=== PATIENT | female | born 1995 | race Two or more races ===

== ENCOUNTER → 2020-08-31 15:10 | Outpatient (BNVA) | payer OTHER, SELFPAY | PROVIDERS: Visit Provider Internal Medicine | DX: Z76.89 Persons encountering health services in other specified circumstances (principal) ==

== ENCOUNTER 2020-09-13 14:54 | Outpatient (REF) | payer OTHER, SELFPAY ==
[2020-09-13 15:58] LABS: Hematocrit 40.2 % (37-47); Hemoglobin 13.1 g/dl (12.0-16.0); Mean Corpuscular HGB Conc 32.6 g/dl (31.0-35.0); Mean Corpuscular Hemoglobin 29.6 pg (27.0-33.0); Mean Platelet Volume 10.7 fL (9.4-12.3); Platelet Count 361 X10*3/uL (160-400); Red Blood Count 4.42 X10*6/uL (4.20-5.50); Red Cell Distribution Width 13.1 % (11.0-16.0); White Blood Count 7.2 X10*3/uL (4.8-10.8)
[2020-09-13 16:20] LABS: C Reactive Protein 0.17 mg/dL (< or = 0.50)
[2020-09-13 16:51] LABS: Rheumatoid Factor < 15.0 IU/mL (<15.0)
[2020-09-13 17:04] LABS: Erythrocyte Sedimentation Rate 9 MM/HR (0-20)
[2020-09-14 08:08] LABS: Syphilis Screen Nonreactive (Nonreactive)
[2020-09-14 13:33] LABS: Anti Nuclear Antibody Screen NEGATIVE (NEGATIVE)
[2020-09-16 19:36] LABS: Treponema pallidum Ab FTA ABS Nonreactive (Nonreactive)
[2020-09-18 06:32] LABS: Angiotensin Converting Enzyme 28 U/L (9-67)
[2020-09-18 15:33] LABS: HLA B27 Negative (Negative)
== END 2020-09-13 14:55 | disposition home or self-care (01) ==
LOC: HO.LAB 14:54
PROVIDERS: Absent Provider Internal Medicine; Visit Provider Ophthalmology
DX: H20.013 Primary iridocyclitis, bilateral (principal); A53.9 Syphilis, unspecified
CPT/HCPCS: 36415; 82164; 85027; 85652; 86038; 86039; 86140; 86431; 86780; 86812

== ENCOUNTER 2021-03-09 14:45 | Emergency (ER) | payer OTHER, SELFPAY ==
[2021-03-09 15:39] VITALS: BP 110/75; PULSE 71; RESP 18; TEMP 37.3; O2SAT 99; BMI 29.2
[2021-03-09 17:39] LABS: MANUAL DIFF FLAG NO
[2021-03-09 17:40] LABS: Basophils Percent Auto 0.4 % (0-2); Eosinophils Absolute Auto 0.5 X10*3/uL (0.0-0.4); Eosinophils Percent Auto 5.2 % (0-4); Hematocrit 39.6 % (37-47); Hemoglobin 12.9 g/dl (12.0-16.0); Imm Gran Abs Auto 0.03 X10*3/uL (0.00-0.03); Imm Gran Pct Auto 0.3 % (0.0-0.4); Lymphocytes Absolute Auto 2.3 X10*3/uL (1.2-4.9); Lymphocytes Percent Auto 25.3 % (20-40); Mean Corpuscular HGB Conc 32.6 g/dl (31.0-35.0); Mean Corpuscular Hemoglobin 29.3 pg (27.0-33.0); Mean Platelet Volume 10.3 fL (9.4-12.3); Monocytes Absolute Auto 0.5 X10*3/uL (0.1-1.2); Monocytes Percent Auto 5.3 % (2-11); Neutrophils Absolute Auto 5.9 X10*3/uL (2.0-8.3); Neutrophils Percent Auto 63.5 % (45-73); Platelet Count 314 X10*3/uL (160-400); Red Cell Distribution Width 13.1 % (11.0-16.0); White Blood Count 9.2 X10*3/uL (4.8-10.8)
[2021-03-09 18:02] LABS: Anion Gap 12 (12-20); Blood Urea Nitrogen 13 mg/dL (9-16); Calcium 9.8 mg/dL (8.4-10.2); Carbon Dioxide 23 mmol/L (22-29); Chloride 107 mmol/L (96-108); Creatinine Clr Calc Pharmacy 101.9; Estimated Glomerular Filt Rate > 60; Glucose Random 137 mg/dL (60-115); Sodium 138 mmol/L (135-145)
[2021-03-09 19:30] LABS: Glucose Urine UA NEG (NEG); Leukocyte Esterase Urine NEG (NEG); Nitrite Urine NEG (NEG); Specific Gravity - Urine 1.025 (1.005-1.025); Urine Blood NEG (NEG); Urine Ketones NEG (NEG); Urine Protein NEG (NEG-TRACE)
[2021-03-09 19:39] LABS: Appearance Urine CLEAR; Color Urine YELLOW
[2021-03-09 19:40] LABS: UPreg QC Valid YES; Urine Pregnancy NEGATIVE (NEGATIVE)
--- NOTE | 2021-03-09 20:00 | ED.GENADULT ---
HPI - General Adult General Chief complaint: General Medical Stated complaint: cramping Time Seen by Provider: 03/09/21 19:54 Related Data Previous Rx's Medication Instructions Recorded doxycycline hyclate 100 mg PO BID #14 cap 03/09/21 Allergies Allergy/AdvReac Type Severity Reaction Status Date / Time No Known Allergies Allergy Verified 03/09/21 15:39 Review of Systems Review of Systems: Constitutional : No Weight loss, No Fever, No Chills, No Night Sweats, No Fatigue, No Malaise Cardiovascular : No Chest Pain, No SOB, No Dyspnea on Exertion, No Orthopnea, No Edema, No Palpitations Respiratory : No Cough, No Sputum, No Wheezing, No Smoke Exposure, No Dyspnea Gastrointestinal : No Nausea, No Vomiting, No Diarrhea, No Constipation, No abdominal Pain, No Hematochezia, No Melena Genitourinary : no irregular bleeding, No Dysuria, No Urinary Frequency, No Hematuria, No Urinary Incontinence, No Urgency, No Flank Pain, No Urinary Flow Changes, No Hesitancy, vaginal bleeding Skin : No Skin Lesions, No rash Neuro : No Weakness, No Numbness, No Paresthesias, No Loss of Consciousness, No Dizziness, No Headache Psych : No Anxiety/Panic, No Depression, No SI/HI/AH/VH, No Social Issues, Heme/Lymph: No Bruising, No Bleeding,No Lymphadenopathy Endocrine : No Polyuria, No Polydipsia, No Temperature Intolerance Yes all other systems are reviewed and are negative [facility], [facility] Past Medical History Medical History (Updated 03/09/21 @ 20:46 by Lashawn Sharif [facility]) Syphilis Social History Social History Patient Tobacco Use Status: Current everyday Tobacco user Use of substances other than those prescribed or required for medical reasons: Yes Substance Use Type: Marijuana Advance Directives: No Advance Directives Information Provided: Yes Patient : No Physical Exam Vital Signs: Vital Signs: Last Vital Signs Temp 99.1 F 03/09/21 15:39 Pulse 68 03/09/21 20:07 Resp 15 03/09/21 20:07 BP 122/88 03/09/21 20:07 Pulse Ox 100 03/09/21 20:07 Body Mass Index 29.2 Const: General: healthy appearing, no acute distress and well developed Nutritional Appearance: well nourished Orientation/consciousness: patient oriented x3 Neck: Neck: Yes normal visual inspection, Yes full ROM and Yes trachea midline Thyroid: Thyroid normal Resp: Auscultation: clear to auscultation bilaterally Cardio: Rate: regular rate Rhythm: regular rhythm GI: Inspection: Yes normal to inspection and No distended Palpation (GI): No hepatosplenomegaly present Auscultation: normal bowel sounds : Other: Vaginal bleeding, status post plan B Skin: General skin exam: elasticity normal, turgor normal and dry skin Neuro: General: patient oriented x3 Course Course Course Narrative: 25-year-old female here today for complaints of vaginal bleeding. Patient reports [facility] and received plan B, total of 4 pills. Patient reports that she has been having vaginal bleeding since then. CBCs done while in waiting room and no anemia. Urine is negative for . Patient is reporting that she was also diagnosed with gonorrhea, however never treated. She missed several appointments with them because she works and was unable to make the times. Patient denies nausea, vomiting. I will give her a dose of Rocephin IM. Will do urine for gonorrhea and chlamydia. Patient will be sent home with doxycycline. She is agreeable to plan of care and verbalizes understanding of instructions. She was given the opportunity to ask questions and all questions answered. Medical Decision Making Lab Data Result diagrams: 03/09/21 17:33 03/09/21 17:34 Labs: Lab Results 03/09/21 03/09/21 03/09/21 Range/Units 17:33 17:34 19:21 WBC 9.2 (4.8-10.8) X10*3/uL RBC 4.40 (4.20-5.50) X10*6/uL Hgb 12.9 (12.0-16.0) g/dl Hct 39.6 (37-47) % MCV 90.0 (80-98) fL MCH 29.3 (27.0-33.0) pg MCHC 32.6 (31.0-35.0) g/dl RDW 13.1 (11.0-16.0) % Plt Count 314 (160-400) X10*3/uL MPV 10.3 (9.4-12.3) fL Immature Gran % (Auto) 0.3 (0.0-0.4) % Neut % (Auto) 63.5 (45-73) % Lymph % (Auto) 25.3 (20-40) % [place] % (Auto) 5.3 (2-11) % Eos % (Auto) 5.2 H (0-4) % Baso % (Auto) 0.4 (0-2) % Lymph # (Auto) 2.3 (1.2-4.9) X10*3/uL [place] # (Auto) 0.5 (0.1-1.2) X10*3/uL Eos # (Auto) 0.5 H (0.0-0.4) X10*3/uL Baso # (Auto) 0.0 (0.0-0.2) X10*3/uL Abs Immat Gran (auto) 0.03 (0.00-0.03) X10*3/uL Absolute Neuts (auto) 5.9 (2.0-8.3) X10*3/uL Absolute Nucleated RBC 0.000 (0.0-0.012) X10*3/uL Nucleated RBC % (auto) 0.0 (0.0-0.2) /100WBC Sodium 138 (135-145) mmol/L Potassium 4.0 (3.3-5.1) mmol/L Chloride 107 (96-108) mmol/L Carbon Dioxide 23 (22-29) mmol/L Anion Gap 12 (12-20) BUN 13 (9-16) mg/dL Creatinine 0.78 (0.5-1.4) mg/dL Estim Creat Clear Calc 101.9 Estimated GFR > 60 Random Glucose 137 H (60-115) mg/dL Calcium 9.8 (8.4-10.2) mg/dL Urine Color YELLOW Urine Appearance CLEAR Urine pH 6.0 (5.0-8.0) Ur Specific [place] 1.025 (1.005-1.025) Urine Protein NEG (NEG-TRACE) MG/DL Urine Glucose (UA) NEG (NEG) MG/DL Urine Ketones NEG (NEG) MG/DL Urine Blood NEG (NEG) Urine Nitrite NEG (NEG) Ur Leukocyte Esterase NEG (NEG) Urine Test (NEGATIVE) 07/22/21 Range/Units 19:21 WBC (4.8-10.8) X10*3/uL RBC (4.20-5.50) X10*6/uL Hgb (12.0-16.0) g/dl Hct (37-47) % MCV (80-98) fL MCH (27.0-33.0) pg MCHC (31.0-35.0) g/dl RDW (11.0-16.0) % Plt Count (160-400) X10*3/uL MPV (9.4-12.3) fL Immature Gran % (Auto) (0.0-0.4) % Neut % (Auto) (45-73) % Lymph % (Auto) (20-40) % [place] % (Auto) (2-11) % Eos % (Auto) (0-4) % Baso % (Auto) (0-2) % Lymph # (Auto) (1.2-4.9) X10*3/uL [place] # (Auto) (0.1-1.2) X10*3/uL Eos # (Auto) (0.0-0.4) X10*3/uL Baso # (Auto) (0.0-0.2) X10*3/uL Abs Immat Gran (auto) (0.00-0.03) X10*3/uL Absolute Neuts (auto) (2.0-8.3) X10*3/uL Absolute Nucleated RBC (0.0-0.012) X10*3/uL Nucleated RBC % (auto) (0.0-0.2) /100WBC Sodium (135-145) mmol/L Potassium (3.3-5.1) mmol/L Chloride (96-108) mmol/L Carbon Dioxide (22-29) mmol/L Anion Gap (12-20) BUN (9-16) mg/dL Creatinine (0.5-1.4) mg/dL Estim Creat Clear Calc Estimated GFR Random Glucose (60-115) mg/dL Calcium (8.4-10.2) mg/dL Urine Color Urine Appearance Urine pH (5.0-8.0) Ur Specific [place] (1.005-1.025) Urine Protein (NEG-TRACE) MG/DL Urine Glucose (UA) (NEG) MG/DL Urine Ketones (NEG) MG/DL Urine Blood (NEG) Urine Nitrite (NEG) Ur Leukocyte Esterase (NEG) Urine Test NEGATIVE (NEGATIVE) Discharge Plan Discharge Clinical Impression: , Sexually transmitted disease (STD) Patient Disposition: Home, Self-Care Instructions: Sexually Transmitted Diseases (ED) Additional Instructions: You were seen here today after going through . Your test was negative. For sexually transmitted diseases. You were medicated with first dose of the treatment and when urine results are back we will call you. Please make sure you finish all of your treatment. You may return to emergency department if your symptoms will get worse or if he will experience any additional concerning symptoms. Please follow-up with your primary care doctor in 2-3 days Prescriptions: New doxycycline hyclate 100 mg capsule 100 mg PO BID Qty: 14 RF: 0
[2021-03-09 20:07] VITALS: BP 122/88; PULSE 68; RESP 15; O2SAT 100
[2021-03-09] MEDS: cefTRIAXone sodium 500 MG, Lidocaine HCl 1 % MPF 1 ML IM (20:17)
[2021-03-10 11:47] LABS: CT PCR NOT DETECTED (Not Detect.); NG PCR NOT DETECTED (Not Detect.)
== END 2021-03-09 21:02 | disposition home or self-care (01) ==
PROVIDERS: Nurse Practitioner Family; Emergency Provider Emergency Medicine
DX: O03.9 Complete or unspecified spontaneous abortion without complication (principal); Z11.3 Encounter for screening for infections with a predominantly sexual mode of transmission; F17.210 Nicotine dependence, cigarettes, uncomplicated; F12.90 Cannabis use, unspecified, uncomplicated
CPT/HCPCS: 36415; 80048; 81003; 81025; 85025; 87491; 87591; 96372; 99284; J0696

== ENCOUNTER 2021-07-18 10:49 | Emergency (ER) | payer OTHER, SELFPAY ==
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
[2021-07-18 11:10] VITALS: BP 120/75; PULSE 70; RESP 18; TEMP 36.6; O2SAT 99; BMI 28.3
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
[2021-07-18 11:32] LABS: UPreg QC Valid YES; Urine Pregnancy NEGATIVE (NEGATIVE)
== END 2021-07-18 13:03 | disposition home or self-care (01) ==
PROVIDERS: Emergency Provider Emergency Medicine
DX: S39.012A Strain of muscle, fascia and tendon of lower back, initial encounter (principal); S16.1XXA Strain of muscle, fascia and tendon at neck level, initial encounter; V43.53XA Car driver injured in collision with pick-up truck in traffic accident, initial encounter; Y93.89 Activity, other specified; Y92.414 Local residential or business street as the place of occurrence of the external cause; Y99.9 Unspecified external cause status
CPT/HCPCS: 71046; 73030; 81025; 99283

== ENCOUNTER 2022-02-21 03:17 | Emergency (ER) | payer OTHER, SELFPAY ==
[2022-02-21 03:25] VITALS: BP 140/92; PULSE 113; RESP 18; TEMP 37.1; O2SAT 96; BMI 29.2
[2022-02-21 03:45] LABS: COVID-19 Test Negative (Negative); IDNOW Serial# 55D5AD1C; Influenza A Negative (Negative); Influenza B2 Negative (Negative)
[2022-02-21 04:23] LABS: Strep A Nucleic Acid Negative (Negative)
--- NOTE | 2022-02-21 04:32 | ED.URI ---
HPI - URI/Sore Throat General Chief Complaint: Upper Respiratory Symptoms Stated Complaint: loss smell & taste, sore throat, cough Time Seen by Provider: 02/21/22 03:18 Source: patient Mode of arrival: ambulatory Limitations: no limitations History of Present Illness HPI Narrative: Patient comes emergency room complaining of 5 days of congestion, loss of smell, loss of taste, fatigue and generalized malaise. Patient denies chest pain or shortness of breath, mild cough. Related Data Previous Rx's Medication Instructions Recorded doxycycline hyclate 100 mg capsule 100 mg PO BID #14 caps 03/09/21 cyclobenzaprine 10 mg tablet 10 mg PO TID PRN muscle spasm #10 07/18/21 tabs ibuprofen 600 mg tablet 600 mg PO Q8H PRN pain #14 tabs 07/18/21 lidocaine 5 % topical patch 1 patch topical DAILY #15 ea 07/18/21 ibuprofen 600 mg tablet 600 mg PO Q6H PRN fever or pain 02/21/22 #20 tabs Allergies Allergy/AdvReac Type Severity Reaction Status Date / Time No Known Allergies Allergy Verified 03/09/21 15:39 Review of Systems Review of Systems: Constitutional : No Weight loss, complaining of subjective fever, chills, fatigue ENT/Mouth : No Hearing loss, No Ear Pain, No Nasal Congestion, No Sinus Pain, No Hoarseness, No sore throat, No Rhinorrhea, No Swallowing Difficulty Eyes: No Eye Pain, No Swelling, No Redness, No Foreign Body, No Discharge, No Vision Changes Cardiovascular : No Chest Pain, No SOB, No Dyspnea on Exertion, No Orthopnea, No Edema, No Palpitations Respiratory : Complaining of mild cough Gastrointestinal : No Nausea, No Vomiting, No Diarrhea, No Constipation, No abdominal Pain, No Hematochezia, No Melena Genitourinary : no irregular bleeding, No Dysuria, No Urinary Frequency, No Hematuria, No Urinary Incontinence, No Urgency, No Flank Pain, No Urinary Flow Changes, No Hesitancy Musculoskeletal : No joint pain, No Myalgias, No Joint Swelling Skin : No Skin Lesions, No rash Neuro : No Weakness, No Numbness, No Paresthesias, No Loss of Consciousness, No Dizziness, No Headache Psych : No Anxiety/Panic, No Depression, No SI/HI/AH/VH, No Social Issues, Heme/Lymph: No Bruising, No Bleeding,No Lymphadenopathy Endocrine : No Polyuria, No Polydipsia, No Temperature Intolerance [facility] Past Medical History Medical History Syphilis Social History Social History Patient Tobacco Use Status: Current everyday Tobacco user Substance Use Type: Marijuana Physical Exam Vital Signs: Vital Signs: Last Vital Signs Temp 98.7 F 02/21/22 03:25 Pulse 113 H 02/21/22 03:25 Resp 18 02/21/22 03:25 BP 140/92 H 02/21/22 03:25 Pulse Ox 96 02/21/22 03:25 O2 Del Method 02/21/22 03:25 BMI result Body Mass Index 29.2 Const: Other: Appearance: Alert. Oriented X3. No acute distress. Eyes: Pupils equal, round and reactive to light. ENT: Pharynx normal. No exudates, no abscesses, no erythema Neck: Normal inspection. Neck supple. No lymph nodes noted. No crepitus CVS: Normal heart rate and rhythm. Pulses normal. Normal S1 and S2, heart rate in the 90s Respiratory: No respiratory distress. Breath sounds normal. No Wheezing. No rales Abdomen: Soft and nontender. No rigidity. No distention. Skin: Skin warm and dry. Normal skin color. Normal skin turgor. Extremities: No lower extremity edema. No Lacerations. No Rash Neuro: Oriented X 3. No motor deficit. No sensory deficit. Moving all extremities. No slurred speech. CN 2 through 12 grossly intact Psych: calm, cooperative, normal affect Course Course Course Narrative: Patient tested negative for COVID, influenza, strep. Patient likely has a viral syndrome. MDM - URI/Sore Throat Lab Data Labs: Lab Results 02/21/22 02/21/22 02/21/22 Range/Units 03:25 03:25 04:10 COVID-19 (DOMINICK) Negative (Negative) COVID-19 Clin Com See Note Influenza Type A (WANDA) Negative (Negative) Influenza Type B (WANDA) Negative (Negative) Influenza A & B Note See Note S. pyogenes GrpA WANDA Negative (Negative) Discharge Plan Discharge Clinical Impression: Acute viral syndrome Patient Disposition: Home, Self-Care Instructions: Viral Syndrome (ED) Additional Instructions: Please follow-up with your primary care physician tomorrow. If you have any worsening or new symptoms, please return to the emergency room or call 911 Prescriptions: New ibuprofen 600 mg tablet 600 mg PO Q6H PRN (Reason: fever or pain) Qty: 20 0RF No Action doxycycline hyclate 100 mg capsule 100 mg PO BID Qty: 14 0RF cyclobenzaprine 10 mg tablet 10 mg PO TID PRN (Reason: muscle spasm) Qty: 10 0RF ibuprofen 600 mg tablet 600 mg PO Q8H PRN (Reason: pain) Qty: 14 0RF lidocaine 5 % adhesive patch,medicated 1 patch topical DAILY Qty: 15 0RF Rx Instructions: leave on most painful area for up to 12 hrs
[2022-02-21 04:52] VITALS: O2SAT 98
== END 2022-02-21 05:05 | disposition home or self-care (01) ==
PROVIDERS: Emergency Provider Emergency Medicine
DX: B34.9 Viral infection, unspecified (principal); Z20.822 Contact with and (suspected) exposure to COVID-19; R43.8 Other disturbances of smell and taste
CPT/HCPCS: 36415; 87502; 87635; 87651; 99283; 99284

== ENCOUNTER 2023-05-15 13:00 | Emergency (ER) | payer OTHER, SELFPAY ==
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
[2023-05-15 13:58] VITALS: BP 126/90; PULSE 70; RESP 18; TEMP 36.6; O2SAT 98; BMI 35.9
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
[2023-05-15] MEDS: Ketorolac Tromethamine 15 MG/ML VIAL IM (15:21)
[2023-05-15] MEDS: Cyclobenzaprine HCl 5 MG TABLET PO (15:21)
== END 2023-05-15 15:40 | disposition home or self-care (01) ==
PROVIDERS: Emergency Provider Emergency Medicine
DX: M54.50 Low back pain, unspecified (principal); M79.605 Pain in left leg; M79.604 Pain in right leg; Z79.899 Other long term (current) drug therapy
CPT/HCPCS: 72100; 96372; 99283; 99284; J1885

== ENCOUNTER 2023-09-13 16:58 | Emergency (ER) | payer OTHER, SELFPAY ==
--- NOTE | ~2023-09-13 | US_ITS ---
EXAMINATION: US PELVIS CLINICAL INFORMATION: Left-sided pain. Assess for torsion COMPARISON: None available. TECHNIQUE: Ultrasound of the pelvis is performed using both transabdominal and transvaginal transducers along with Doppler. Transvaginal imaging is performed due to inadequate visualization transabdominally. FINDINGS: Uterus: The uterus is anteverted and measures 7.4 x 4.2 x 5.1 cm. The double wall endometrial thickness is 4 mm. The uterus is smooth in contour and has normal myometrial echogenicity. No visible fibroid. Adnexa: Both ovaries are visualized. There is normal color flow to the adnexa. There is no ovarian torsion. There is no pelvic ascites or fluid collection. Right ovary measures 5 mL in volume and left ovary measures 8 mL in volume. US/US pelvic and transvaginal IMPRESSION: No adnexal mass or evidence for any active ovarian torsion.
--- NOTE | ~2023-09-13 | US_ITS ---
EXAMINATION: US PELVIS CLINICAL INFORMATION: Left-sided pain. Assess for torsion COMPARISON: None available. TECHNIQUE: Ultrasound of the pelvis is performed using both transabdominal and transvaginal transducers along with Doppler. Transvaginal imaging is performed due to inadequate visualization transabdominally. FINDINGS: Uterus: The uterus is anteverted and measures 7.4 x 4.2 x 5.1 cm. The double wall endometrial thickness is 4 mm. The uterus is smooth in contour and has normal myometrial echogenicity. No visible fibroid. Adnexa: Both ovaries are visualized. There is normal color flow to the adnexa. There is no ovarian torsion. There is no pelvic ascites or fluid collection. Right ovary measures 5 mL in volume and left ovary measures 8 mL in volume. US/US pelvic ovarian doppler IMPRESSION: No adnexal mass or evidence for any active ovarian torsion.
--- NOTE | 2023-09-13 17:11 | ED.ABDPAIN ---
HPI - Abdominal Pain General Chief Complaint: General Medical Stated Complaint: abd pain x1 week Time Seen by Provider: 09/13/23 19:04 Source: patient Mode of arrival: ambulatory Limitations: no limitations History of Present Illness HPI narrative: 28-year-old female who presents emergency department for evaluation of left lower quadrant abdominal pain x1 week. She states she has a sharp pain that is moderate to severe in intensity, she states the pain is been intermittent. She states that she has had constant nausea for the past week with occasional episodes of vomiting. Patient states that she has had vaginal bleeding x1 week, which she believes is consistent with her menstrual period. Patient states that she is sexually active and she believes that her boyfriend has been cheating on her. She states she did notice a unusual vaginal discharge which was orange and had a foul odor. She denied fever, chills, chest pain, shortness of breath. She did have urinary frequency but no dysuria. Related Data Previous Rx's Medication Instructions Recorded doxycycline hyclate 100 mg capsule 100 mg PO BID #14 caps 03/09/21 cyclobenzaprine 10 mg tablet 10 mg PO TID PRN muscle spasm #10 07/18/21 tabs ibuprofen 600 mg tablet 600 mg PO Q8H PRN pain #14 tabs 07/18/21 lidocaine 5 % topical patch 1 patch topical DAILY #15 ea 07/18/21 ibuprofen 600 mg tablet 600 mg PO Q6H PRN fever or pain 02/21/22 #20 tabs cyclobenzaprine 5 mg tablet 5 mg PO TID PRN muscle spasm 7 05/15/23 days #21 tabs acetaminophen 500 mg tablet 1,000 mg (2 x 500 mg) PO Q6H PRN 09/13/23 (Tylenol Extra Strength) fever or pain #20 tabs doxycycline hyclate 100 mg tablet 100 mg PO Q12H 14 days #28 tabs 09/13/23 ibuprofen 400 mg tablet 400 mg PO TID PRN fever or pain 09/13/23 #30 tabs metronidazole 500 mg tablet 500 mg PO Q12H 14 days #28 tabs 09/13/23 Allergies Allergy/AdvReac Type Severity Reaction Status Date / Time No Known Allergies Allergy Verified 03/09/21 15:39 Review of Systems Review of Systems Yes all other systems are reviewed and are negative [facility] Past Medical History [facility] Narrative: Past medical history: None. Surgical history: None. Social history: She does smoke cigarettes. She occasionally drinks alcohol. She smokes marijuana. Medical History Syphilis Social History Social History Patient Tobacco Use Status: Never used Tobacco Substance Use Type: Marijuana Advance Directives: No Advance Directives Information Provided: No Physical Exam ED Vital Signs: Vital Signs - 24 hr 09/13/23 17:12 Temperature 97.8 F Pulse Rate 75 Respiratory Rate 16 Blood Pressure 128/63 Pulse Oximetry 100 Oxygen Delivery Method Room Air BMI result Body Mass Index 35.9 Vital signs were normal Exam: General: Awake, alert in no distress Lung: breath sounds symmetric, no wheezing, rales or rhonchi Chest: symmetric movement, nontender Heart: regular rate and rhythm, normal S1, S2 no murmurs or rubs Abdomen: soft, mild suprapubic tenderness, mild to moderate left left lower pelvic tenderness : External exam was normal. Vaginal exam did reveal a thick whitish discharge Cervix appears to be inflamed, os is closed and there was a thick whitish discharge coming from the cervical os, patient has moderate cervical motion tenderness Bimanual exam did reveal significant tenderness palpation of the cervix, and palpation over the uterus and adnexa bilaterally Back: no vertebral tenderness, no CVAT Psych: Pleasant, cooperative Course Course Course Narrative: This is an RME: Additional HPI, ROS, PE not included below will be deferred to primary provider. Patient is a 28-year-old female who presents to the emergency department for evaluation of left lower quadrant abdominal pain, nausea, diarrhea. Currently menstruating, denies possibility of . Reports concern for STI, abnormal vaginal discharge preceding menses. Plan: labs, U/A, STI testing Medical Decision Making Medical Decision Making MDM Narrative: 28-year-old female presents emergency department for evaluation of 1 week of left lower quadrant tenderness which an intermittent sharp pain which is moderate to severe in intensity, patient has had vaginal bleeding for 1 week which she attributes to her menstrual period, she has also had persistent nausea for 1 week with occasional vomiting and an unusual, orange, foul-smelling discharge. Patient is concerned that she might have sexually transmitted disease since she believes her boyfriend is cheating on her. Vital signs were normal. Exam did reveal left pelvic tenderness. Pelvic exam revealed a thick white cervical and vaginal discharge with significant cervical motion tenderness and tenderness palpation over the uterus and adnexa bilaterally Following evaluation was ordered: CBC, CMP, urinalysis, urine test, quantitative beta-hCG, pelvic and transvaginal ultrasound, duplex ultrasound Differential diagnosis includes was not limited to related pain, pelvic inflammatory disease, STD, ovarian cyst, ovarian torsion 21:16 My interpretation patient's laboratory evaluation as follows: CBC was normal. CMP was normal except for an elevated glucose of 151. Lipase was negative. Urine test was negative. Quantitative beta-hCG was negative. Pelvic ultrasound revealed no ovarian cyst and no ovarian torsion. Patient's physical examination is consistent with pelvic inflammatory disease and I did discuss this with the patient. Patient was treated with ceftriaxone mixed with lidocaine 500 mg IM, doxycycline 100 mg orally and metronidazole 500 mg orally. She was also given ibuprofen 400 mg orally for pain. She was prescribed doxycycline 100 mg q.12 hours times 14 days and metronidazole 500 mg q.12 hours times 14 days. She will need to follow-up with our service girl in 10-14 days for re-evaluation. She was given printed and verbal instructions discharged home Admission/Observation Consideration of admission/observation: Escalation of care including admission/observation considered Lab Data MDM Lab Attestation statement: I reviewed the patient's lab results. 09/13/23 17:22 09/13/23 17:22 Labs: Lab Results 09/13/23 09/13/23 Range/Units 17:22 19:03 WBC 8.0 (4.8-10.8) X10*3/uL RBC 4.30 (4.20-5.50) X10*6/uL Hgb 12.6 (12.0-16.0) g/dl Hct 37.8 (37.0-47.0) % MCV 87.9 (80.0-98.0) fL MCH 29.3 (27.0-33.0) pg MCHC 33.3 (31.0-35.0) g/dl RDW 12.9 (11.0-16.0) % Plt Count 320 (160-400) X10*3/uL MPV 10.3 (9.4-12.3) fL Immature Gran % (Auto) 0.3 (0.0-0.4) % Neut % (Auto) 47.8 (45-73) % Lymph % (Auto) 40.4 H (20-40) % [place] % (Auto) 4.1 (2-11) % Eos % (Auto) 6.6 H (0-4) % Baso % (Auto) 0.8 (0-2) % Lymph # (Auto) 3.2 (1.2-4.9) X10*3/uL [place] # (Auto) 0.3 (0.1-1.2) X10*3/uL Eos # (Auto) 0.5 H (0.0-0.4) X10*3/uL Baso # (Auto) 0.1 (0.0-0.2) X10*3/uL Abs Immat Gran (auto) 0.02 (0.00-0.03) X10*3/uL Absolute Neuts (auto) 3.8 (2.0-8.3) x10*3/uL Absolute Nucleated RBC 0.000 (0.0-0.012) X10*3/uL Nucleated RBC % (auto) 0.0 (0.0-0.2) /100WBC Sodium 138 (135-145) mmol/L Potassium 3.9 (3.3-5.1) mmol/L Chloride 106 (96-108) mmol/L Carbon Dioxide 22 (22-29) mmol/L Anion Gap 14 (12-20) BUN 13 (9-16) mg/dL Creatinine 0.92 (0.5-1.4) mg/dL Estim Creat Clear Calc 89.9 Estimated GFR > 60 Random Glucose 155 H (60-115) mg/dL Calcium 9.3 (8.4-10.2) mg/dL Total Bilirubin 0.4 (0.0-1.0) mg/dL AST 19 (5-31) U/L ALT 19 (0-31) U/L Alkaline Phosphatase 59 (39-117) U/L Total Protein 7.7 (6.5-8.0) g/dL Albumin 4.0 (3.5-5.0) g/dL Lipase 10 (8-78) U/L Beta HCG, Quant < 2 mIU/mL Urine Color Yellow Urine Appearance Clear Urine pH 5.5 (5.0-9.0) Ur Specific [place] >= 1.030 H (1.005-1.025) Urine Protein Negative (Neg-Trace) mg/dL Urine Glucose (UA) Negative (Negative) mg/dL Urine Ketones Trace (Negative) mg/dL Urine Blood Negative (Negative) Urine Nitrite Negative (Negative) Ur Leukocyte Esterase Negative (Negative) Urine Test NEGATIVE (NEGATIVE) Radiology Impression Discussion of test interpretation with radiology: I have reviewed the radiologist's reading. Radiologist Impression: US pelvic and transvaginal IMPRESSION: No adnexal mass or evidence for any active ovarian torsion. Dictated By: Akash Simpson MD Discharge Plan Discharge Clinical Impression: Acute pelvic inflammatory disease Patient Disposition: Home, Self-Care Additional Instructions: Pelvic inflammatory disease instructions: Your presentation and physical findings are consistent with pelvic inflammatory disease (PID). Approximately 30% of the time, pelvic inflammatory disease is caused by sexually transmitted diseases such as Trichomonas, gonorrhea or chlamydia. Approximately 70% of the time, pelvic inflammatory disease is caused by abnormal bacteria (anaerobic bacteria) in your vagina that can cause an infection ? Medications You received ceftriaxone 500 mg intramuscularly here in the emergency department Take doxycycline 100 mg, 1 pill twice a day for 14 days. Take metronidazole 500 mg, 1 pill twice a day for 14 days. These 3 antibiotics treat sexually transmitted diseases such as gonorrhea, chlamydia and Trichomonas as well as anaerobic bacteria that can cause pelvic inflammatory disease. Take ibuprofen 400 mg pills, 1 pills every 6 hours as needed for pain. Take Tylenol (acetaminophen) 500 mg pills, 2 pills every 4 to 6 hours as needed for pain. Follow-Up Follow-up with our gynecology in ?10-14 days. Pending laboratory tests: The doctor that follows up ?will need to review the following results with you: Gonorrhea and chlamydia (cervical swab) can also check these results on the patient portal. Return precautions: Please return to the emergency department if your symptoms get worse if your pain does not go away in 48 hours or if you develop any symptoms that are concerning to you. Please see the work note. Prescriptions: New metronidazole 500 mg tablet 500 mg PO Q12H 14 Days Qty: 28 0RF acetaminophen [Tylenol Extra Strength] 500 mg tablet 1,000 mg PO Q6H PRN (Reason: fever or pain) Qty: 20 0RF ibuprofen 400 mg tablet 400 mg PO TID PRN (Reason: fever or pain) Qty: 30 0RF doxycycline hyclate 100 mg tablet 100 mg PO Q12H 14 Days Qty: 28 0RF No Action doxycycline hyclate 100 mg capsule 100 mg PO BID Qty: 14 0RF ibuprofen 600 mg tablet 600 mg PO Q6H PRN (Reason: fever or pain) Qty: 20 0RF cyclobenzaprine 10 mg tablet 10 mg PO TID PRN (Reason: muscle spasm) Qty: 10 0RF ibuprofen 600 mg tablet 600 mg PO Q8H PRN (Reason: pain) Qty: 14 0RF lidocaine 5 % adhesive patch,medicated 1 patch topical DAILY Qty: 15 0RF Rx Instructions: leave on most painful area for up to 12 hrs cyclobenzaprine 5 mg tablet 5 mg PO TID PRN (Reason: muscle spasm) 7 Days Qty: 21 0RF Referrals: Jose L Kebede MD [Physician] - 10 days (Pelvic inflammatory disease) Stand Alone Forms: Work/School Release
[2023-09-13 17:12] VITALS: BP 128/63; PULSE 75; RESP 16; TEMP 36.6; O2SAT 100; BMI 35.9
[2023-09-13 17:27] LABS: MANUAL DIFF FLAG NO
[2023-09-13 17:29] LABS: Basophils Absolute Auto 0.1 X10*3/uL (0.0-0.2); Basophils Percent Auto 0.8 % (0-2); Eosinophils Absolute Auto 0.5 X10*3/uL (0.0-0.4); Eosinophils Percent Auto 6.6 % (0-4); Hematocrit 37.8 % (37.0-47.0); Hemoglobin 12.6 g/dl (12.0-16.0); Imm Gran Abs Auto 0.02 X10*3/uL (0.00-0.03); Imm Gran Pct Auto 0.3 % (0.0-0.4); Lymphocytes Absolute Auto 3.2 X10*3/uL (1.2-4.9); Lymphocytes Percent Auto 40.4 % (20-40); Mean Corpuscular HGB Conc 33.3 g/dl (31.0-35.0); Mean Corpuscular Hemoglobin 29.3 pg (27.0-33.0); Mean Corpuscular Volume 87.9 fL (80.0-98.0); Mean Platelet Volume 10.3 fL (9.4-12.3); Monocytes Absolute Auto 0.3 X10*3/uL (0.1-1.2); Monocytes Percent Auto 4.1 % (2-11); Neutrophils Absolute Auto 3.8 x10*3/uL (2.0-8.3); Neutrophils Percent Auto 47.8 % (45-73); Platelet Count 320 X10*3/uL (160-400); Red Cell Distribution Width 12.9 % (11.0-16.0)
[2023-09-13 17:44] LABS: Alanine Aminotransferase 19 U/L (0-31); Alkaline Phosphatase 59 U/L (39-117); Anion Gap 14 (12-20); Aspartate Amino Transferase 19 U/L (5-31); Bilirubin Total 0.4 mg/dL (0.0-1.0); Blood Urea Nitrogen 13 mg/dL (9-16); Calcium 9.3 mg/dL (8.4-10.2); Carbon Dioxide 22 mmol/L (22-29); Chloride 106 mmol/L (96-108); Creatinine Clr Calc Pharmacy 89.9; Estimated Glomerular Filt Rate > 60; Glucose Random 155 mg/dL (60-115); Lipase 10 U/L (8-78); Potassium 3.9 mmol/L (3.3-5.1); Sodium 138 mmol/L (135-145); Total Protein 7.7 g/dL (6.5-8.0)
[2023-09-13 19:09] LABS: Appearance Urine Clear; Color Urine Yellow; Glucose Urine UA Negative (Negative); Leukocyte Esterase Urine Negative (Negative); Nitrite Urine Negative (Negative); PH 5.5 (5.0-9.0); Specific Gravity - Urine >= 1.030 (1.005-1.025); Urine Blood Negative (Negative); Urine Ketones Trace mg/dL (Negative); Urine Protein Negative (Neg-Trace)
[2023-09-13 19:43] LABS: HCG Quantitative < 2 mIU/mL
[2023-09-13 19:58] LABS: UPreg QC Valid YES; Urine Pregnancy NEGATIVE (NEGATIVE)
[2023-09-13] MEDS: metroNIDAZOLE 500 MG TABLET PO (21:37)
[2023-09-13] MEDS: cefTRIAXone sodium 500 MG, Lidocaine HCl 1 % MPF 1 ML IM (21:37)
[2023-09-13] MEDS: Ibuprofen 400 MG TABLET PO (21:37)
[2023-09-13] MEDS: Doxycycline Monohydrate 100 MG CAPSULE PO (21:37)
[2023-09-14 09:15] LABS: CT PCR DETECTED (Not Detect.); NG PCR NOT DETECTED (Not Detect.)
== END 2023-09-13 21:59 | disposition home or self-care (01) ==
PROVIDERS: Nurse Practitioner Family; Emergency Provider Emergency Medicine Emergency Medical Services
DX: A56.11 Chlamydial female pelvic inflammatory disease (principal); R10.32 Left lower quadrant pain
CPT/HCPCS: 0353U; 36415; 76830; 76856; 80053; 81003; 81025; 83690; 84702; 85025; 93975; 96372; 99283; 99284; J0696

== ENCOUNTER 2023-10-01 17:44 | Emergency (ER) | payer OTHER, SELFPAY ==
--- NOTE | ~2023-10-01 | US_ITS ---
EXAMINATION: US PELVIS CLINICAL INFORMATION: PID, persistent pain, ?TOA COMPARISON: None available. TECHNIQUE: Ultrasound of the pelvis is performed using both transabdominal and transvaginal transducers along with Doppler. Transvaginal imaging is performed due to inadequate visualization transabdominally. FINDINGS: The uterus measures 8.4 x 3.6 x 5.2 cm. Endometrial stripe measures 1.1 cm in thickness. The right ovary measures 3.9 x 2.2 x 2.3 cm. Cystic structure in the right ovary measuring up to 1.6 cm favors a follicle. The left ovary measures 3.3 x 2.0 x 2.2 cm and appears unremarkable. Doppler evaluation demonstrates bilateral ovarian flow. No adnexal mass is seen. No significant free fluid identified. US/US pelvic and transvaginal IMPRESSION: No acute findings identified.
[2023-10-01 18:10] VITALS: BP 121/85; PULSE 90; RESP 18; TEMP 36.7; O2SAT 97; BMI 34.5
--- NOTE | 2023-10-01 18:13 | ED.GENADULT ---
HPI - General Adult General Chief complaint: Urogenital-Female Stated complaint: Vaginal discomfort Time Seen by Provider: 10/01/23 20:35 Source: patient Mode of arrival: ambulatory Limitations: no limitations History of Present Illness HPI narrative: Patient is a 28-year-old female who presents to the emergency department for evaluation. She reports recently being treated for PID with positive chlamydia testing, but has continued symptoms. She states for the first couple of days while being on her course of antibiotics she had improvement in her abdominal pain and discharge, however after about 3 days of being on the medication her symptoms returned. She has approximately 2 days left of treatment, she does report that she has not been consistent with taking her medications completely as prescribed and has missed some doses in between. 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 Continues to have some mild lower abdominal pain, and persistent thick white vaginal discharge. Related Data Previous Rx's Medication Instructions Recorded doxycycline hyclate 100 mg capsule 100 mg PO BID #14 caps 03/09/21 cyclobenzaprine 10 mg tablet 10 mg PO TID PRN muscle spasm #10 07/18/21 tabs ibuprofen 600 mg tablet 600 mg PO Q8H PRN pain #14 tabs 07/18/21 lidocaine 5 % topical patch 1 patch topical DAILY #15 ea 07/18/21 ibuprofen 600 mg tablet 600 mg PO Q6H PRN fever or pain 02/21/22 #20 tabs cyclobenzaprine 5 mg tablet 5 mg PO TID PRN muscle spasm 7 05/15/23 days #21 tabs acetaminophen 500 mg tablet 1,000 mg (2 x 500 mg) PO Q6H PRN 09/13/23 (Tylenol Extra Strength) fever or pain #20 tabs doxycycline hyclate 100 mg tablet 100 mg PO Q12H 14 days #28 tabs 09/13/23 ibuprofen 400 mg tablet 400 mg PO TID PRN fever or pain 09/13/23 #30 tabs metronidazole 500 mg tablet 500 mg PO Q12H 14 days #28 tabs 09/13/23 Allergies Allergy/AdvReac Type Severity Reaction Status Date / Time No Known Allergies Allergy Verified 10/01/23 18:13 Review of Systems Review of Systems: Yes all other systems are reviewed and are negative PMFSH Past Medical History Attestation statement: The following information was validated with the patient. Source: old records reviewed Medical History Syphilis Social History Social History Patient Tobacco Use Status: Never used Tobacco Substance Use Type: Marijuana Advance Directives: No Advance Directives Information Provided: No Physical Exam ED Vital Signs: Vital Signs - 24 hr 10/01/23 18:10 Temperature 98.1 F Pulse Rate 90 Respiratory Rate 18 Blood Pressure 121/85 Pulse Oximetry 97 Oxygen Delivery Method Room Air BMI result Body Mass Index 34.5 Appearance: Alert.?Oriented to person, place and time. No acute distress.?Normal affect. Eyes: Pupils equal, round and reactive to light.? ENT: Pharynx normal.?? Neck: Normal inspection.? Neck supple.?? CVS: Heart sounds normal. Normal heart rate and rhythm.? Pulses normal.?? Respiratory: No respiratory distress.? Lung sounds clear to auscultation bilaterally?? Abdomen: Soft with mild bilateral lower abdominal tenderness upon palpation. No rebound tenderness. No rigidity. No guarding.. Normoactive bowel sounds. Genital: Performed with german teacher, ED RN Corazon, patient agreeable to external examination, normal external appearance of the urethra no lesions lacerations or Bartholin cyst noted. Thin white discharge is present from the vaginal vault, no swelling or erythema to the external tissues is noted. No active bleeding. Skin: Skin warm and dry.? Normal skin color.? Normal skin turgor.?? Extremities: No lower extremity edema.? No calf ttp? Neuro: Moves all extremities spontaneously. Sensation intact bilaterally. CN II-XII intact. No focal neuro deficits. Ambulates with normal steady gait. Course Course Course Narrative: Patient complains of vaginal discharge and rash Urine GC chlamydia, test ordered This is rapid medical exam done in triage pending full evaluation and dispo by ER provider Reevaluation(s) Reevaluation #1: Advised by nursing staff that patient has left without completing treatment. Time: 21:45 Medical Decision Making Medical Decision Making MDM Narrative: Patient is a 28-year-old female who presents emergency department for evaluation of persistent vaginal discharge and lower abdominal pain in the setting of recent PID diagnosis with positive chlamydia testing. She had a few days of improvement in symptoms while being on course of antibiotics and them things returned. Overall she does appear well, nontoxic, afebrile. Given persistent symptoms and pain, concern for complications, possible TOA, will obtain serum labs in addition to pelvic ultrasound for further testing. Will repeat testing for CT/NG, as well as BV panel, concern for resistant chlamydial infection, yeast infection, BV in addition. I reviewed urinalysis obtained from triage, does not appear consistent with the acute urinary tract infection and testing is negative. Differential Diagnosis Differential Diagnoses: The differential diagnosis associated with the presentation includes (See narrative above) Admission/Observation Consideration of admission/observation: Escalation of care including admission/observation considered (Concern for complicated PID given persistent symptoms despite treatment, patient left without completing treatment) Lab Data MDM Lab Attestation statement: I reviewed the patient's lab results. CBC is without leukocytosis or anemia. BMP is unremarkable. See narrative above for further detail 10/01/23 21:45 10/01/23 21:45 Labs: Lab Results 10/01/23 10/01/23 Range/Units 19:56 21:45 WBC 9.4 (4.8-10.8) X10*3/uL RBC 4.70 (4.20-5.50) X10*6/uL Hgb 13.8 (12.0-16.0) g/dl Hct 41.0 (37.0-47.0) % MCV 87.2 (80.0-98.0) fL MCH 29.4 (27.0-33.0) pg MCHC 33.7 (31.0-35.0) g/dl RDW 13.2 (11.0-16.0) % Plt Count 342 (160-400) X10*3/uL MPV 10.1 (9.4-12.3) fL Immature Gran % (Auto) 0.2 (0.0-0.4) % Neut % (Auto) 57.5 (45-73) % Lymph % (Auto) 29.3 (20-40) % [place] % (Auto) 7.7 (2-11) % Eos % (Auto) 4.8 H (0-4) % Baso % (Auto) 0.5 (0-2) % Lymph # (Auto) 2.8 (1.2-4.9) X10*3/uL [place] # (Auto) 0.7 (0.1-1.2) X10*3/uL Eos # (Auto) 0.5 H (0.0-0.4) X10*3/uL Baso # (Auto) 0.1 (0.0-0.2) X10*3/uL Abs Immat Gran (auto) 0.02 (0.00-0.03) X10*3/uL Absolute Neuts (auto) 5.4 (2.0-8.3) x10*3/uL Absolute Nucleated RBC 0.000 (0.0-0.012) X10*3/uL Nucleated RBC % (auto) 0.0 (0.0-0.2) /100WBC Sodium 140 (135-145) mmol/L Potassium 4.1 (3.3-5.1) mmol/L Chloride 105 (96-108) mmol/L Carbon Dioxide 27 (22-29) mmol/L Anion Gap 12 (12-20) BUN 11 (9-16) mg/dL Creatinine 0.71 (0.5-1.4) mg/dL Estim Creat Clear Calc 114.0 Estimated GFR > 60 Random Glucose 84 (60-115) mg/dL Calcium 9.2 (8.4-10.2) mg/dL Urine Color Dark Yellow Urine Appearance Clear Urine pH 5.5 (5.0-9.0) Ur Specific [place] 1.020 (1.005-1.025) Urine Protein Negative (Neg-Trace) mg/dL Urine Glucose (UA) Negative (Negative) mg/dL Urine Ketones Negative (Negative) mg/dL Urine Blood Negative (Negative) Urine Nitrite Negative (Negative) Ur Leukocyte Esterase Small (1+) H (Negative) Urine RBC 0-2 (0-2) /HPF Urine WBC 6-10 H (0-5) /HPF Ur Squamous Epith Cells 3-5 (0-2) /HPF Urine Bacteria Trace (None Seen) Hyaline Casts 0-2 (0-2) /LPF Urine Test NEGATIVE (NEGATIVE) Radiology Impression Discussion of test interpretation with radiology: I have reviewed the radiologist's reading. Radiologist Impression: US/US pelvic and transvaginal IMPRESSION: No acute findings identified. External Record Review External record reviewed: Outpatient record Discharge Plan Discharge Clinical Impression: Vaginitis Patient Disposition: Left W/O Completing Treatment Prescriptions: No Action doxycycline hyclate 100 mg capsule 100 mg PO BID Qty: 14 0RF ibuprofen 600 mg tablet 600 mg PO Q6H PRN (Reason: fever or pain) Qty: 20 0RF cyclobenzaprine 10 mg tablet 10 mg PO TID PRN (Reason: muscle spasm) Qty: 10 0RF ibuprofen 600 mg tablet 600 mg PO Q8H PRN (Reason: pain) Qty: 14 0RF lidocaine 5 % adhesive patch,medicated 1 patch topical DAILY Qty: 15 0RF Rx Instructions: leave on most painful area for up to 12 hrs cyclobenzaprine 5 mg tablet 5 mg PO TID PRN (Reason: muscle spasm) 7 Days Qty: 21 0RF metronidazole 500 mg tablet 500 mg PO Q12H 14 Days Qty: 28 0RF acetaminophen [Tylenol Extra Strength] 500 mg tablet 1,000 mg PO Q6H PRN (Reason: fever or pain) Qty: 20 0RF ibuprofen 400 mg tablet 400 mg PO TID PRN (Reason: fever or pain) Qty: 30 0RF doxycycline hyclate 100 mg tablet 100 mg PO Q12H 14 Days Qty: 28 0RF Discharge Date/Time: 10/01/23 21:56
[2023-10-01 20:04] LABS: Appearance Urine Clear; Color Urine Dark Yellow; Glucose Urine UA Negative (Negative); Leukocyte Esterase Urine Small (1+) (Negative); Nitrite Urine Negative (Negative); PH 5.5 (5.0-9.0); UMIC TRIGGER UACC YES; Urine Blood Negative (Negative); Urine Ketones Negative (Negative); Urine Protein Negative (Neg-Trace)
[2023-10-01 20:06] LABS: UPreg QC Valid YES; Urine Pregnancy NEGATIVE (NEGATIVE)
[2023-10-01 20:09] LABS: Bacteria Urine Trace (None Seen); Hyaline Casts Urine 0-2 /LPF (0-2); RBC Urine 0-2 /HPF (0-2); UACC Culture Trigger YES
--- NOTE | 2023-10-01 21:49 | PC.NURSE ---
patient had to leave as need to work for 11pm tonight. Pan FUR PULLER aware. labs drawn and vag ultrasound completed with no results at this time.
[2023-10-01 21:50] LABS: MANUAL DIFF FLAG NO
[2023-10-01 21:52] LABS: Basophils Absolute Auto 0.1 X10*3/uL (0.0-0.2); Basophils Percent Auto 0.5 % (0-2); Eosinophils Absolute Auto 0.5 X10*3/uL (0.0-0.4); Eosinophils Percent Auto 4.8 % (0-4); Hemoglobin 13.8 g/dl (12.0-16.0); Imm Gran Abs Auto 0.02 X10*3/uL (0.00-0.03); Imm Gran Pct Auto 0.2 % (0.0-0.4); Lymphocytes Absolute Auto 2.8 X10*3/uL (1.2-4.9); Lymphocytes Percent Auto 29.3 % (20-40); Mean Corpuscular HGB Conc 33.7 g/dl (31.0-35.0); Mean Corpuscular Hemoglobin 29.4 pg (27.0-33.0); Mean Corpuscular Volume 87.2 fL (80.0-98.0); Mean Platelet Volume 10.1 fL (9.4-12.3); Monocytes Absolute Auto 0.7 X10*3/uL (0.1-1.2); Monocytes Percent Auto 7.7 % (2-11); Neutrophils Absolute Auto 5.4 x10*3/uL (2.0-8.3); Neutrophils Percent Auto 57.5 % (45-73); Platelet Count 342 X10*3/uL (160-400); Red Cell Distribution Width 13.2 % (11.0-16.0); White Blood Count 9.4 X10*3/uL (4.8-10.8)
--- NOTE | 2023-10-01 21:56 | PC.NURSE ---
patient had to leave [facility] as working at 11pm and could not be late. Labs drawn and sent down but we as staff cannot confirm that results will be back in time. She is aware that leaving without completing treatment isn't the best plan
[2023-10-01 22:03] LABS: Anion Gap 12 (12-20); Blood Urea Nitrogen 11 mg/dL (9-16); Calcium 9.2 mg/dL (8.4-10.2); Carbon Dioxide 27 mmol/L (22-29); Chloride 105 mmol/L (96-108); Estimated Glomerular Filt Rate > 60; Glucose Random 84 mg/dL (60-115); Potassium 4.1 mmol/L (3.3-5.1); Sodium 140 mmol/L (135-145)
[2023-10-02 05:49] LABS: CT PCR NOT DETECTED (Not Detect.); NG PCR NOT DETECTED (Not Detect.)
[2023-10-02 10:39] LABS: BV Int Neg Control Negative (Negative); BV Int Pos Control Positive (Positive)
== END 2023-10-01 21:56 | disposition left against medical advice (07) ==
PROVIDERS: Nurse Practitioner Family; Physician Assistant Medical; Emergency Provider Emergency Medicine
DX: A56.02 Chlamydial vulvovaginitis (principal); R10.2 Pelvic and perineal pain; N89.8 Other specified noninflammatory disorders of vagina; Z79.899 Other long term (current) drug therapy
CPT/HCPCS: 0353U; 36415; 76830; 76856; 80048; 81001; 81003; 81025; 85025; 87086; 87147; 87480; 87510; 87660; 99282; 99284

== ENCOUNTER 2023-10-10 12:59 | Outpatient (REF) | payer OTHER, SELFPAY ==
[2023-10-11 16:52] LABS: CT PCR NOT DETECTED (Not Detect.); NG PCR NOT DETECTED (Not Detect.)
[2023-10-12 14:42] LABS: BV Int Neg Control Negative (Negative); BV Int Pos Control Positive (Positive)
== END 2023-10-10 13:00 | disposition home or self-care (01) ==
LOC: HO.LAB 12:59
PROVIDERS: Visit Provider Advanced Practice Midwife
DX: A53.9 Syphilis, unspecified (principal); Z11.3 Encounter for screening for infections with a predominantly sexual mode of transmission; Z87.42 Personal history of other diseases of the female genital tract
CPT/HCPCS: 0353U; 81025; 87480; 87510; 87660; 99202

== ENCOUNTER 2023-10-10 12:59 | Outpatient (AMB) | payer OTHER, SELFPAY ==
[2023-10-10 13:00] VITALS: BP 100/60; BMI 34.8
--- NOTE | 2023-10-10 13:00 | A.OFFVIS_ITS ---
Intake Vital Signs 10/10/23 13:00 Height 5 ft 1 in Weight 184 lb BMI 34.8 BP 100/60 Intake Visit Reasons: ER follow up Information Technology Coordinator Required: No Information Interpreted: clinical only Lab Associate: Lab Associate Present Allergies No Known Allergies Allergy (Verified 10/10/23 13:01) Medication List - Last Reconciled 10/10/23 by Mary Rooney CNM acetaminophen (Tylenol Extra Strength) 1,000 mg (2 x 500 mg) PO Q6H PRN Is last menstrual period known: Yes Last menstrual period: 09/03/23 Do you need a note to return to daycare/school/sports/work: No HPI ER follow up HPI Details Patient is here for follow-up from the ER she was seen in the ER a couple of times recently the 2nd to last visit she was there for abdominal pain and she was treated for PID and chlamydia was diagnosed. She says she has not had sex since she did tell that partner but she has not planning on having sex again she would however like a method of control her sister has a NuvaRing and she would like that if she could she smokes but wishes she could quit and is been planning on it she smokes maybe 3-4 cigarettes a day and she would like very much to quit and is interested in doing something about that as well. She does have a little discharge it has a little yellowish but that is all she is a little bit late with her. But she feels like it is going to come she has been getting all her premenstrual Symptoms test done today here is negative. She is a 3-year-old daughter delivered at [facility] premature at 7 months in 2019 during the pandemic. [facility] Medical History Syphilis Social History Patient Tobacco Use Status: Never used Tobacco Substance Use Type: Marijuana Female Reproductive History Menstrual Age of Menarche: 10 Duration of menses: 3-5 days Date of last menstrual period: 09/03/23 control method: none Total pregnancies: 1 Full term: 1 History of abnormal pap smear: No (previous pap unknown ?) Physical Exam Vital Signs: Last Vital Signs BP 100/60 10/10/23 13:00 BMI result Body Mass Index 34.8 Other: Speculum exam within normal limits vagina pink smooth healthy parous cervix pink and smooth very scant normal clear mucus. External Female Exam: normal external appearance Speculum Exam - Vagina: normal appearance of the vagina and normal vaginal d ischarge Speculum Exam - Cervix: normal appearance of the cervix Bimanual exam- vagina & uterus: normal bimanual exam, uterine size normal, consistency normal, uterine mobility normal, uterine shape normal and non-tender Bimanual Exam- Adnexa, other: normal adnexae, no masses and No adnexal tenderness Results AMB Test Urine AMB Test Urine Negative Last Edit by Lyric Andino CMA on 10/10/23 13:18 Results Reviewed Results Reviewed: Laboratory Last Values [facility]st Clinic Negative 10/10/23 13:12 Patient: Eric Moser MR#: [id number] : 1995 Acct:[id number] Age/Sex: 28 / F ADM Date: 10/01/23 Loc: HO.ED Attending Dr: Ordering Physician: Josie Hastings CNP Date of Service: 10/01/23 Procedure(s): US pelvic and transvaginal Accession Number(s): [id number] cc: Josie Hastings CNP; Physician,None ~ EXAMINATION: US PELVIS CLINICAL INFORMATION: PID, persistent pain, ?TOA COMPARISON: None available. TECHNIQUE: Ultrasound of the pelvis is performed using both transabdominal and transvaginal transducers along with Doppler. Transvaginal imaging is performed due to inadequate visualization transabdominally. FINDINGS: The uterus measures 8.4 x 3.6 x 5.2 cm. Endometrial stripe measures 1.1 cm in thickness. The right ovary measures 3.9 x 2.2 x 2.3 cm. Cystic structure in the right ovary measuring up to 1.6 cm favors a follicle. The left ovary measures 3.3 x 2.0 x 2.2 cm and appears unremarkable. Doppler evaluation demonstrates bilateral ovarian flow. No adnexal mass is seen. No significant free fluid identified. US/US pelvic and transvaginal IMPRESSION: No acute findings identified. Dictated By: Julio César Black MD Signed By: <Electronically signed by Julio César Black MD in [place]> 10/01/232147 DD/ 18 TD/TT: [employer] Intermediary: NICOLLE Also reviewed all of her previous lab work including positive FTA in 2020. As well as positive chlamydia the 2nd to last ER visit and positive Gardnerella and Gabriella at the last ER visit last week she is feeling less itchy and things are improving she was not treated for either of those we will retest today and await results, Assessment & Plan Assessment & Plan (1) Syphilis: Comment: She has minimally reactive FTA SHe has no titer available She has had false positive she says in past Code(s): A53.9 - Syphilis, unspecified (2) Encounter for screening examination for sexually transmitted disease: Code(s): Z11.3 - Encounter for screening for infections with a predominantly sexual mode of transmission (3) History of PID: Code(s): Z87.42 - Personal history of other diseases of the female genital tract Plan Reviewed would of been done in the ER reviewed that it appears that she is now better from the PID and even if she had bacterial vaginosis and yeast it does appear that she may have had the yeast indeed in that her vagina is a little bit pink but looks like it is well on its way to healing from that the discharge looked fine today and in fact consistent with somebody about to get there.. Extensive discussion about options for control which she is interested in she would like the ring her sister's using it and she thinks it would be convenient discussed all the many issues involved with it she use including not taking it out accept when it is time to take out i.e. leave it in for the full 21 days take it out for 7 then replace it with a new 1 for the next 21 days I have given her 3 month supply with refills but she is a smoker who is interested very much in quitting she is tired of it and does not like the smell and she would love to be able to quit altogether she smokes about 3-4 cigarettes a day. I have prescribed as 7 mg nicotine patch for her if it is covered by her insurance and if it is not she may explore NICU team gum or something else and discussed using this opportunity as motivation to help her get off the cigarettes completely she is motivated to quit so we will see her in 3 months for her full annual exam if she has quit at that time she may continue on the NuvaRing. Discussed the possible negative effects for people who smoke and use hormonal contraceptive that they put themselves at increased risk of having a blood clot and I discussed the symptoms of them. Orders: Orders Syphilis Screen Today A53.9 - Syphilis, unspecified, Z11.3 - Encounter for screening for infections with a predominantly sexual mode of transmission CT NG by PCR Today Z01.419 - Encounter for gynecological examination (general) (routine) without abnormal findings AMB HCG Urine Test Today Z32.02 - Encounter for test, result negative Hepatitis B Surface Antigen Today A53.9 - Syphilis, unspecified, Z11.3 - Encounter for screening for infections with a predominantly sexual mode of transmission Hepatitis C Antibody Today A53.9 - Syphilis, unspecified, Z11.3 - Encounter for screening for infections with a predominantly sexual mode of transmission HIV Ab/Ag Today A53.9 - Syphilis, unspecified, Z11.3 - Encounter for screening for infections with a predominantly sexual mode of transmission Bacterial Vaginosis Panel Today Z20.2 - Contact with and (suspected) exposure to infections with a predominantly sexual mode of transmission Medications: New etonogestrel-ethinyl estradiol 0.12-0.015 mg/[address] for 3 weeks of a 4-week cycle 1 vag ring vaginal Q4W 3 ea 3RF nicotine 1 patch transdermal Q24H 14 ea 0RF Coding Level of Care Code New Pt Level 3 (70016) Diagnoses Syphilis A53.9 Encounter for screening examination for sexually transmitted disease Z11.3 History of PID Z87.42
== END 2023-10-10 14:11 | disposition home or self-care (01) ==
LOC: HO.HWSM 12:59
PROVIDERS: Visit Provider Advanced Practice Midwife
DX: A53.9 Syphilis, unspecified (principal); Z11.3 Encounter for screening for infections with a predominantly sexual mode of transmission; Z87.42 Personal history of other diseases of the female genital tract; Z32.02 Encounter for pregnancy test, result negative
CPT/HCPCS: 99203

== ENCOUNTER 2023-10-11 14:10 | Emergency (ER) | payer OTHER, SELFPAY ==
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
[2023-10-11 14:17] VITALS: BP 134/90; PULSE 88; O2SAT 98
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
[2023-10-11 14:19] VITALS: BP 116/79; PULSE 79; RESP 18; TEMP 36.6; O2SAT 97; BMI 35.0
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
[2023-10-11] MEDS: diazePAM 2 MG TABLET PO (18:09)
[2023-10-11] MEDS: Acetaminophen 325 MG TABLET 975 MG PO (18:09)
== END 2023-10-11 18:15 | disposition home or self-care (01) ==
PROVIDERS: Emergency Provider Internal Medicine
DX: S13.4XXA Sprain of ligaments of cervical spine, initial encounter (principal); S39.012A Strain of muscle, fascia and tendon of lower back, initial encounter; V43.52XA Car driver injured in collision with other type car in traffic accident, initial encounter; Y93.9 Activity, unspecified; Y92.410 Unspecified street and highway as the place of occurrence of the external cause; Y99.9 Unspecified external cause status; M54.2 Cervicalgia; R51.9 Headache, unspecified; M62.830 Muscle spasm of back; M25.522 Pain in left elbow; M25.512 Pain in left shoulder
CPT/HCPCS: 70450; 72125; 73030; 73080; 99283; 99284

== ENCOUNTER 2024-03-08 09:42 | Emergency (ER) | payer OTHER, SELFPAY ==
[2024-03-08 09:51] VITALS: BP 126/92; PULSE 83; RESP 16; TEMP 36.8; O2SAT 97; BMI 34.7
--- NOTE | 2024-03-08 10:11 | ED.GENADULT ---
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 Denies any injury or known foreign body. States she had previously been seeing Dr. Soto, but was discharged from the practice after a no-call, no-show. Reports difficulty finding another property claim rep as she has [employer]. She denies contact lens use, wears glasses but did not bring them with her to the ED. Had unknown eyedrops leftover from 2 years ago, has been using those without change in symptoms. Denies any headaches, dizziness, nausea or vomiting. MD complaint: eye irritation Onset (ago): year(s) Location: eyes Quality: burning Treatments prior to arrival: other Related Data Previous Rx's ?Medication ?Instructions ?Recorded acetaminophen 500 mg tablet 1,000 mg (2 x 500 mg) PO Q6H PRN 09/13/23 (Tylenol Extra Strength) fever or pain #20 tabs etonogestrel 0.12 mg-ethinyl 1 vag ring vaginal Q4W #3 ea 10/10/23 estradiol 0.015 mg/24 hr vaginal ring nicotine 7 mg/24 hr daily 1 patch transdermal Q24H #14 ea 10/10/23 transdermal patch acetaminophen 325 mg tablet 650 mg (2 x 325 mg) PO Q6H PRN 10/11/23 (Tylenol) pain #30 tabs cyclobenzaprine 10 mg tablet 10 mg PO TID PRN muscle spasm #14 10/11/23 tabs lidocaine 5 % topical patch 1 patch topical DAILY #30 ea 10/11/23 (Lidoderm) metronidazole 0.75 % (37.5 mg/5 1 appful vaginal BEDTIME 5 days 10/14/23 gram) vaginal gel #70 grams Allergies Allergy/AdvReac Type Severity Reaction Status Date / Time No Known Allergies Allergy Verified 03/08/24 09:53 Review of Systems Review of Systems: As per HPI. Yes all other systems are reviewed and are negative Constitutional: Constitutional: Reports as per HPI [facility] Past Medical History Medical History Syphilis Social History Social History Patient Tobacco Use Status: Never used Tobacco Substance Use Type: Marijuana Advance Directives: No Advance Directives Information Provided: No Do you have a plan to hurt others: No Plan Physical Exam ED Vital Signs: Vital Signs - 24 hr 03/08/24 09:51 Temperature 98.2 F Pulse Rate 83 Respiratory Rate 16 Blood Pressure 126/92 H Pulse Oximetry 97 Oxygen Delivery Method Room Air BMI result Body Mass Index 34.7 Vital signs have been reviewed and appear to be correct. Blood pressure diastolic elevated. Heart rate normal. Respiratory rate normal. Temperature normal. Oxygen saturation normal. Const General: cooperative, healthy appearing and no acute distress Orientation/consciousness: oriented to person, oriented to place, oriented to time and patient oriented x3 Limitations: no limitations HENMT Head: Yes normocephalic and Yes atraumatic Ears: external ears normal General nose exam: Normal external nose present Face and sinus: Yes face symmetric Mouth: oropharynx normal and moist mucous membranes Throat: Yes uvula midline Eyes Other: no ciliary flush General: appearance normal, both eyes and all related structures Visual Jacobsen: normal visual jacobsen by confrontation Alignment and Position: alignment normal and position normal Periorbital: periorbital findings normal Eyelids: Yes eyelids normal Conjunctivae: conjunctival abnormal bilateral conjunctival injection circumcorneal (mild); Negative for conjunctival icterus, without chemosis, without discharge, without pallor, without pterygia and without subconjunctival hemorrhages Sclerae: sclerae normal Corneas: corneas normal and fluorescein used Pupils: Equal, round and reactive pupils present, Pupils normal by confrontation and Pupil accommodation reflex normal EOM: EOMs intact bilaterally (pain free) Neck Neck: Yes normal visual inspection and Yes supple Resp Effort & Inspection: normal respiratory effort and able to speak in complete sentences Auscultation: clear to auscultation bilaterally Cardio Rate: regular rate Rhythm: regular rhythm Heart sounds: S1 normal heart sound present and S2 normal heart sound present Skin General skin exam: elasticity normal and turgor normal Neuro General: oriented to person, oriented to place, oriented to time, patient oriented x3, moves all extremities, no focal motor deficits and CN's II-XI intact bilaterally Cranial nerves: Yes Equal, round and reactive pupils present Cognition (Neuro): normal cognition Extrem General: Yes full ROM, Yes no pedal edema and Yes no calf tenderness Psych Mental Status: mental status grossly normal Affect: normal affect Thought process: Normal thought process present Medical Decision Making Medical Decision Making [facility] Narrative: Patient is a 28-year-old female with history of chronic iritis for at least the past 8 years presenting to the emergency department complaining of hazy vision and discomfort to both eyes, worse in right. On exam patient is awake, A+Ox3, VS WNL, afebrile, normal neurological exam without focal deficits, physical exam findings as above. Given reported symptoms and physical exam findings, initial differential includes chronic iritis, blepharitis, conjunctivitis, corneal abrasions, dry eye syndrome, episcleritis. No red flag findings concerning for retinal detachment, acute angle closure glaucoma, hyphema. IOPs 19 OD, 18 OS. Unable to complete visual acuity as patient did not bring her glasses with her. No evidence of corneal abrasion or other lesions on Felton lamp exam with fluorescein stain. Discussed with patient that due to the chronicity of her symptoms, she needs to follow up with an property claim rep. Will provide patient with some referrals but also recommended that she call the number on her [employer] card to find an property claim rep that takes her insurance. Advised patient that she can use [id number] artificial tears but should avoid any other medicated eyedrops, also should not use eyedrops. Return precautions for which patient should return to the ED were discussed at bedside. Patient verbalized understanding of and agreement with plan. Differential Diagnosis Differential Diagnoses: The differential diagnosis associated with the presentation includes As per [facility] External Record Review External record reviewed: Inpatient record, Office record and Outpatient record Discharge Plan Discharge Clinical Impression: Corneal irritation of both eyes Patient Disposition: Home, Self-Care Additional Instructions: You were evaluated in the emergency department today for discomfort to both eyes. Your evaluation did not show evidence of conditions requiring emergent medical treatment at this time. We recommend that you do not use eyedrops. You can use [id number] artificial tears but should avoid any other medicated eyedrops until further evaluated by property claim rep. We recommend calling the number on your [employer] card to find an property claim rep that will take her insurance. Return to the emergency department if you develop severe pain, pain with eye movements, discharge or drainage from your eyes, blurred or double vision or any other concerning symptoms. Prescriptions: No Action metronidazole 0.75 % (37.5mg/5 gram) gel 1 appful vaginal BEDTIME 5 Days Qty: 70 0RF acetaminophen [Tylenol Extra Strength] 500 mg tablet 1,000 mg PO Q6H PRN (Reason: fever or pain) Qty: 20 0RF cyclobenzaprine 10 mg tablet 10 mg PO TID PRN (Reason: muscle spasm) Qty: 14 0RF acetaminophen [Tylenol] 325 mg tablet 650 mg PO Q6H PRN (Reason: pain) Qty: 30 0RF lidocaine [Lidoderm] 5 % adhesive patch,medicated 1 patch topical DAILY Qty: 30 0RF Rx Instructions: leave on most painful area for up to 12 hrs etonogestrel-ethinyl estradiol 0.12-0.015 mg/24 hr ring 1 vag ring vaginal Q4W Qty: 3 3RF Rx Instructions: leave in place for 3 weeks of a 4-week cycle nicotine 7 mg/24 hr patch 24 hour 1 patch transdermal Q24H Qty: 14 0RF Referrals: [facility] [Outside] [facility] [Outside] [facility] [Outside] [facility] [Outside] [facility] [Outside] [facility] [Outside] Print Language: Irish
[2024-03-08 11:09] VITALS: BP 119/72; PULSE 79; RESP 17; TEMP 36.8; O2SAT 98
[2024-03-08] MEDS: Fluorescein Sodium STRIP 1 STRIP EYE-BOTH (11:10)
[2024-03-08 11:15] VITALS: BP 119/72; PULSE 79; RESP 17; TEMP 36.8; O2SAT 98
== END 2024-03-08 11:16 | disposition home or self-care (01) ==
PROVIDERS: Emergency Provider Emergency Medicine
DX: S05.01XA Injury of conjunctiva and corneal abrasion without foreign body, right eye, initial encounter (principal); S05.02XA Injury of conjunctiva and corneal abrasion without foreign body, left eye, initial encounter; X58.XXXA Exposure to other specified factors, initial encounter; Y93.89 Activity, other specified; Y92.89 Other specified places as the place of occurrence of the external cause; Y99.8 Other external cause status; Z79.899 Other long term (current) drug therapy
CPT/HCPCS: 99283

== ENCOUNTER 2024-07-01 09:31 | Outpatient (REF) | payer OTHER, SELFPAY ==
[2024-07-02 10:44] LABS: HPV 16,18/45 See PAP report
== END 2024-07-01 09:32 | disposition home or self-care (01) ==
LOC: HO.LNP 09:31
PROVIDERS: Visit Provider Advanced Practice Midwife
DX: Z01.419 Encounter for gynecological examination (general) (routine) without abnormal findings (principal); Z11.3 Encounter for screening for infections with a predominantly sexual mode of transmission; A53.9 Syphilis, unspecified; Z87.42 Personal history of other diseases of the female genital tract; N92.6 Irregular menstruation, unspecified
CPT/HCPCS: 81025; 87624; 88175; 99395

== ENCOUNTER 2024-07-01 09:31 | Outpatient (AMB) | payer OTHER, SELFPAY ==
[2024-07-01 09:34] VITALS: BP 120/70; BMI 32.9
--- NOTE | 2024-07-01 09:34 | A.OFFVIS_ITS ---
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 She has been using condoms or doing sex in other forms. She wanted to talk about her period which she said was crazy she bled in May starting May 25 for about a week and a half and then it started back up again. She did a test and it was positive but she was thinking it was a false positive she would not want to be she is in a new relationship that she is not entirely certain about for the last 3 months. She does have a history of STIs. She states she thinks she ought to know better. She says she finds herself just getting drunk and going crazy she has a lot of anxiety. She has a 4-year-old daughter mother helps her. She does not have a primary care provider and she does not have therapist. She said she was kind of thinking she might be but she was hoping she was not and she was ignoring it in hoping it would go away. [facility] Medical History Syphilis Social History Patient Tobacco Use Status: Never used Tobacco Substance Use Type: Marijuana Female Reproductive History Menstrual Age of Menarche: 10 Duration of menses: other Date of last menstrual period: 06/07/24 control method: none Total pregnancies: 1 Full term: 1 Date of last pap smear: 09/07/21 (negative per patient) History of abnormal pap smear: No Physical Exam Vital Signs: Last Vital Signs BP 120/70 07/01/24 09:34 BMI result Body Mass Index 32.9 Const General: healthy appearing, comfortable, no acute distress, well developed and alert Nutritional Appearance: average body habitus Orientation/consciousness: patient oriented x3 Limitations: no limitations HEENT Head: Yes normocephalic Neck Neck: Yes normal visual inspection Chest Chest palpation & inspection: normal inspection of the chest Breast/axilla inspection: normal inspection of the breasts and normal inspection of the axillae Breast/axilla palpation: normal palpation of the breasts and normal palpation of the axillae Resp Effort & Inspection: normal respiratory effort GI Inspection: Yes normal to inspection, No Abdominal wall edema and No distended Palpation (GI): Soft to palpation and nontender Other: External exam within normal limits vagina pink and moist with scant end of menses type blood cervix multiparous long thick external os gaping slightly but internal os closed uterus relatively small mobile nontender moderately firm nothing notable adnexa nontender good tone with Kegel. No patient does have a history of pre term delivery at 7 months as well as this question of a very recent SAB. General: Yes bladder normal to palpation External Female Exam: normal external appearance and normal appearance of the urethra Speculum Exam - Vagina: normal appearance of the vagina, normal palpation and normal vaginal discharge Speculum Exam - Cervix: normal appearance of the cervix, normal palpation and nontender Bimanual exam- vagina & uterus: normal bimanual exam, normal palpation, uterine size normal, bladder normal to palpation, consistency normal, normal palpation, uterine mobility normal, uterine shape normal, No Cervical tenderness present, non-tender and no cervical motion tenderness Bimanual Exam- Adnexa, other: normal adnexae, no masses, normal and No adnexal tenderness Neuro General: patient oriented x3 Results Reviewed Results Reviewed: Urine test done here is negative. Assessment & Plan Assessment & Plan (1) Syphilis: Comment: She has minimally reactive FTA SHe has no titer available She has had false positive she says in past Code(s): A53.9 - Syphilis, unspecified Category: Medical (2) Encounter for screening examination for sexually transmitted disease: Code(s): Z11.3 - Encounter for screening for infections with a predominantly sexual mode of transmission Category: Medical (3) History of PID: Code(s): Z87.42 - Personal history of other diseases of the female genital tract Category: Medical (4) Women's annual routine gynecological examination: Code(s): Z01.419 - Encounter for gynecological examination (general) (routine) without abnormal findings Category: Medical (5) Cervical cancer screening: Code(s): Z12.4 - Encounter for screening for malignant neoplasm of cervix Category: Medical (6) control counseling: Code(s): Z30.09 - Encounter for other general counseling and advice on contraception Category: Medical (7) Late menses: Code(s): N92.6 - Irregular menstruation, unspecified Category: Medical Plan Pap smear was done testing for gonorrhea chlamydia trichomoniasis Gardnerella and Gabriella was done testing was also ordered for HIV hepatitis B hepatitis C and syphilis patient has a history of syphilis so we are expecting positive but we will be checking to see if any titers have risen. I am also doing a quant hCG and a TSH per our discussion since she had symptoms home test that was positive and had unprotected sex she and I both suspect she may have in fact had an early miscarriage but we will verify quant negative with the serum testing she is on the portal and she will check her results today and if negative she is going to start the norethindrone control pills tomorrow also reviewed all of the other options available to her since she has not been able to quit smoking I am not comfortable continuing the prescription for the NuvaRing as she had last year. She has not had sex in the last month since she has been bleeding so if hCG is confirmed negative this is a good time for her to start the norethindrone control pills. We will see her in 3 months. Patient to be given a list of primary care provider options at the commercial front load operator as well. Orders: Orders Hepatitis C Antibody Today A53.9 - Syphilis, unspecified, N92.6 - Irregular menstruation, unspecified, Z01.419 - Encounter for gynecological examination (general) (routine) without abnormal findings, Z11.3 - Encounter for screening for infections with a predominantly sexual mode of transmission, Z12.4 - Encounter for screening for malignant neoplasm of cervix, Z30.09 - Encounter for other general counseling and advice on contraception, Z87.42 - Personal history of other diseases of the female genital tract HIV Ab/Ag Today A53.9 - Syphilis, unspecified, N92.6 - Irregular menstruation, unspecified, Z01.419 - Encounter for gynecological examination (general) (routine) without abnormal findings, Z11.3 - Encounter for screening for infections with a predominantly sexual mode of transmission, Z12.4 - Encounter for screening for malignant neoplasm of cervix, Z30.09 - Encounter for other general counseling and advice on contraception, Z87.42 - Personal history of other diseases of the female genital tract Syphilis Screen Today A53.9 - Syphilis, unspecified, N92.6 - Irregular m enstruation, unspecified, Z01.419 - Encounter for gynecological examination (general) (routine) without abnormal findings, Z11.3 - Encounter for screening for infections with a predominantly sexual mode of transmission, Z12.4 - Encounter for screening for malignant neoplasm of cervix, Z30.09 - Encounter for other general counseling and advice on contraception, Z87.42 - Personal history of other diseases of the female genital tract Hepatitis B Surface Antigen Today A53.9 - Syphilis, unspecified, N92.6 - Irregular menstruation, unspecified, Z01.419 - Encounter for gynecological examination (general) (routine) without abnormal findings, Z11.3 - Encounter for screening for infections with a predominantly sexual mode of transmission, Z12.4 - Encounter for screening for malignant neoplasm of cervix, Z30.09 - Encounter for other general counseling and advice on contraception, Z87.42 - Personal history of other diseases of the female genital tract HCG Quantitative Today A53.9 - Syphilis, unspecified, N92.6 - Irregular menstruation, unspecified, Z01.419 - Encounter for gynecological examination (general) (routine) without abnormal findings, Z11.3 - Encounter for screening for infections with a predominantly sexual mode of transmission, Z12.4 - Encounter for screening for malignant neoplasm of cervix, Z30.09 - Encounter for other general counseling and advice on contraception, Z87.42 - Personal history of other diseases of the female genital tract Thyroid Stimulating Hormone Today A53.9 - Syphilis, unspecified, N92.6 - Irregular menstruation, unspecified, Z01.419 - Encounter for gynecological examination (general) (routine) without abnormal findings, Z11.3 - Encounter for screening for infections with a predominantly sexual mode of transmission, Z12.4 - Encounter for screening for malignant neoplasm of cervix, Z30.09 - Encounter for other general counseling and advice on contraception, Z87.42 - Personal history of other diseases of the female genital tract Medications: New norethindrone (contraceptive) 0.35 mg PO DAILY 84 tabs 4RF Coding Level of Care Code Est Pt Prev Care [id number]([id number]) Diagnoses Syphilis A53.9 Encounter for screening examination for sexually transmitted disease Z11.3 History of PID Z87.42 Women's annual routine gynecological examination Z01.419 Cervical cancer screening Z12.4 control counseling Z30.09 Late menses N92.6
== END 2024-07-01 10:50 | disposition home or self-care (01) ==
PROVIDERS: Visit Provider Advanced Practice Midwife
DX: Z01.419 Encounter for gynecological examination (general) (routine) without abnormal findings (principal); A53.9 Syphilis, unspecified; Z11.3 Encounter for screening for infections with a predominantly sexual mode of transmission; Z87.42 Personal history of other diseases of the female genital tract; Z12.4 Encounter for screening for malignant neoplasm of cervix; Z30.09 Encounter for other general counseling and advice on contraception; N92.6 Irregular menstruation, unspecified; Z32.02 Encounter for pregnancy test, result negative
CPT/HCPCS: 99395

== ENCOUNTER 2024-07-01 10:59 | Outpatient (REF) | payer OTHER, SELFPAY ==
[2024-07-01 14:16] LABS: HBsAGNum1 0.28 S/CO (0.00-0.99); HCG Quantitative < 2 mIU/mL; HIV AB/AG Nonreactive (Nonreactive); HIV Num 1 0.06 S/CO (0.00-0.99); Hepatitis B Surface Antigen Negative (Negative); Thyroid Stimulating Hormone 0.97 uIU/mL (0.32-4.0); ~HepC Num1 0.18 S/CO (0.00-0.79); ~Hepatitis C Antibody Nonreactive (Nonreactive)
[2024-07-01 14:17] LABS: Syphilis Screen Nonreactive (Nonreactive)
[2024-07-01 14:20] LABS: HBsAGNum1 0.28 S/CO (0.00-0.99); HIV AB/AG Nonreactive (Nonreactive); HIV Num 1 0.05 S/CO (0.00-0.99); Hepatitis B Surface Antigen Negative (Negative); ~HepC Num1 0.17 S/CO (0.00-0.79); ~Hepatitis C Antibody Nonreactive (Nonreactive)
[2024-07-01 14:23] LABS: Syphilis Screen Nonreactive (Nonreactive)
[2024-07-02 04:21] LABS: CT PCR NOT DETECTED (Not Detect.); NG PCR NOT DETECTED (Not Detect.)
[2024-07-02 12:05] LABS: Bacterial Vaginosis PCR POSITIVE (Negative); Candida Group PCR NOT DETECTED (Not Detect); Candida glab krusei PCR NOT DETECTED (Not Detect); Trichomonas vaginalis PCR NOT DETECTED (Not Detect)
== END 2024-07-01 11:00 | disposition home or self-care (01) ==
LOC: HO.HHCL 10:59
PROVIDERS: Visit Provider Advanced Practice Midwife
DX: Z01.419 Encounter for gynecological examination (general) (routine) without abnormal findings (principal); A53.9 Syphilis, unspecified; Z11.3 Encounter for screening for infections with a predominantly sexual mode of transmission; Z87.42 Personal history of other diseases of the female genital tract; N92.6 Irregular menstruation, unspecified; N89.8 Other specified noninflammatory disorders of vagina; Z20.2 Contact with and (suspected) exposure to infections with a predominantly sexual mode of transmission
CPT/HCPCS: 0352U; 36415; 84443; 84702; 86780; 86803; 87340; 87389; 87491; 87591

== ENCOUNTER 2024-07-01 11:27 | Outpatient (REF) | payer OTHER, SELFPAY | END 2024-07-01 11:28 | disposition home or self-care (01) | LOC: HO.LAB 11:27 | PROVIDERS: Visit Provider Advanced Practice Midwife | DX: Z13.89 Encounter for screening for other disorder (principal) ==

== ENCOUNTER 2024-07-28 11:08 | Emergency (ER) | payer OTHER, SELFPAY ==
--- NOTE | ~2024-07-28 | CT_ITS ---
EXAMINATION: CT ABDOMEN AND PELVIS WITHOUT CONTRAST CLINICAL INFORMATION: Right flank pain. COMPARISON: Pelvic ultrasound dated 10/01/2023. TECHNIQUE: Multidetector volumetric imaging was performed from the superior aspect of the liver through the pubic symphysis. Sagittal and coronal reformatted images were obtained on the technologist's workstation. This CT examination was performed using dose optimization techniques as appropriate, variously including the following: *Automated exposure control. *Adjustment of mA and/or kV according to patient size (this includes techniques or standardized protocols for targeted exams where dose is matched to indication/reason for exam; i.e. extremities or head). *Use of iterative reconstruction technique. DLP: 583 mGy-cm FINDINGS: LUNG BASES: The visualized lung bases are unremarkable. LIVER, GALLBLADDER, AND BILIARY TREE: The liver is normal in size, shape, and attenuation. No focal hepatic lesion or biliary ductal dilatation is present. The gallbladder is unremarkable with no evidence of radiopaque gallstones, gallbladder wall thickening, or obvious pericholecystic inflammatory changes. PANCREAS: Unremarkable. SPLEEN: Unremarkable. ADRENAL GLANDS: Unremarkable. KIDNEYS AND URETERS: The kidneys are normal in size, shape, and attenuation. Right ureterovesicular junction stone measuring up to 0.3 cm with tiju-hl-zfkfyrkz right-sided hydroureter and mild hydronephrosis. Mild periureteral and perinephric stranding. No additional renal or ureteral stone. No left-sided hydroureteronephrosis. BLADDER: Partially distended and otherwise unremarkable. GASTROINTESTINAL TRACT: No small or large bowel obstruction. No bowel wall thickening or inflammatory change. Unremarkable appendix. PERITONEAL CAVITY: No intra-abdominal free air or free fluid. No intra-abdominal mass or organized fluid collection/abscess formation. ABDOMINAL WALL: No significant hernia is appreciated. LYMPH NODES: No lymphadenopathy. VASCULAR: No abdominal aortic dilatation. Retroaortic left renal vein. PELVIC VISCERA: The uterus and adnexa are unremarkable. OSSEOUS STRUCTURES: Unremarkable. CT/CT abdomen pelvis wo IV con IMPRESSION: 1. Right ureterovesicular junction stone measuring up to 0.3 cm with chic-us-ugiqvaju right-sided hydroureter and mild hydronephrosis. Mild periureteral and perinephric stranding. No additional renal or ureteral stone. No left-sided hydroureteronephrosis. 2. Otherwise, unremarkable examination. Fleischner guidelines were followed. Electronically signed by: Lonnie Ferro MD 07/28/2024 05:25 PM MAXX ORDONEZ
--- NOTE | 2024-07-28 11:31 | ED.ABDPAIN ---
HPI - Abdominal Pain General Chief Complaint: Nausea/Vomiting/Diarrhea Stated Complaint: Abd pain Time Seen by Provider: 07/28/24 14:28 Source: patient Mode of arrival: ambulatory Limitations: no limitations History of Present Illness ED Provider: Glenn GOMEZ narrative: Patient is a 29-year-old female presenting to the emergency department with complaint of severe suprapubic and right flank pain since this morning. Symptoms began yesterday morning, then improved, then worsened again this morning. Also reports nausea, vomiting and diarrhea. Denies fevers. States she is currently unable to urinate. Denies history of kidney stones, but reports positive family history. Feels as though she has to have a bowel movement but is unable to go. Denies vaginal bleeding or other abnormal vaginal discharge or concern for STIs. MD elicited complaint: abdominal pain Pain Consistency: constant Location: suprapubic Severity: severe Quality: aching Radiation: R flank Associated symptoms: nausea, vomiting and diarrhea Related Data Previous Rx's ?Medication ?Instructions ?Recorded acetaminophen 500 mg tablet 1,000 mg (2 x 500 mg) PO Q6H PRN 09/13/23 (Tylenol Extra Strength) fever or pain #20 tabs cyclobenzaprine 10 mg tablet 10 mg PO TID PRN muscle spasm #14 10/11/23 tabs norethindrone (contraceptive) 0.35 0.35 mg PO DAILY #84 tabs 07/01/24 mg tablet metronidazole 500 mg tablet 500 mg PO BID 7 days #14 tabs 07/02/24 morphine 15 mg immediate release 15 mg PO Q8H PRN severe pain 07/28/24 tablet (scale score 7-10) #8 tabs ondansetron 4 mg disintegrating 4 mg PO Q8H PRN nausea and 07/28/24 tablet vomiting #10 tabs prednisone 20 mg tablet 20 mg PO DAILY #7 tabs 07/28/24 tamsulosin 0.4 mg capsule 0.4 mg PO DAILY #14 caps 07/28/24 Allergies Allergy/AdvReac Type Severity Reaction Status Date / Time No Known Allergies Allergy Verified 07/28/24 11:34 Review of Systems Review of Systems As per HPI Yes all other systems are reviewed and are negative Constitutional: Reports as per HPI PMFSH Past Medical History Medical History Syphilis Social History Social History Patient Tobacco Use Status: Never used Tobacco Substance Use Type: Marijuana Advance Directives: No Advance Directives Information Provided: Yes Physical Exam ED Vital Signs: Vital Signs - 24 hr 07/28/24 11:33 07/28/24 16:42 Temperature 97.1 F 97.3 F Pulse Rate 72 91 Respiratory Rate 20 16 Blood Pressure 132/84 105/54 L Pulse Oximetry 99 99 Oxygen Delivery Method Room Air Room Air BMI result Body Mass Index 34.0 Vital signs have been reviewed and appear to be correct. Blood pressure normal. Heart rate normal. Respiratory rate normal. Temperature normal. Oxygen saturation normal. Const General: cooperative, healthy appearing and no acute distress Orientation/consciousness: oriented to person, oriented to place, oriented to time and patient oriented x3 Limitations: no limitations HENMT Head: Yes normocephalic and Yes atraumatic Ears: external ears normal General nose exam: Normal external nose present Face and sinus: Yes face symmetric Mouth: oropharynx normal and moist mucous membranes Throat: Yes uvula midline Eyes Pupils: Equal, round and reactive pupils present Neck Neck: Yes normal visual inspection and Yes supple Resp Effort & Inspection: normal respiratory effort and able to speak in complete sentences Auscultation: clear to auscultation bilaterally Cardio Rate: regular rate Rhythm: regular rhythm Heart sounds: S1 normal heart sound present and S2 normal heart sound present GI Palpation (GI): Soft to palpation, Tenderness to palpation present (GI) suprapubicly, no guarding and No Rebound tenderness present Auscultation: normoactive bowel sounds General: Yes CVA tenderness on the right Back/Spine/Pelvis Back: CVA tenderness Skin General skin exam: elasticity normal and turgor normal Neuro General: oriented to person, oriented to place, oriented to time, patient oriented x3, moves all extremities, no focal motor deficits and CN's II-XI intact bilaterally Cranial nerves: Yes Equal, round and reactive pupils present Cognition (Neuro): normal cognition Extrem General: Yes full ROM, Yes no pedal edema and Yes no calf tenderness Psych Mental Status: mental status grossly normal Affect: normal affect Thought process: Normal thought process present Course Course Course Narrative: This is an RME: Additional HPI, ROS, PE not included below will be deferred to primary provider. RME assessment and note performed by: Antonia López PA-C This is a [id number]-female who presents to the ER with complaints of right sided abdominal pain and vaginal pain. Reports urinary frequency and dysuria. She states this started yesterday morning and then resolved and then returned this AM. She states that she had her menses last week, denies chance of . Denies chance of STIs. She also feels as though she has to have a bowel movement but is unable to do so. Last bowel movement was yesterday and was normal. Plan: UA, labs, zofran 4mg ODT. Medical Decision Making Medical Decision Making [facility] Narrative: Patient is a 29-year-old female presenting to the emergency department with complaint of severe suprapubic and right flank pain since this morning. On exam patient is awake, A+Ox3, VS WNL, afebrile, normal neurological exam without focal deficits, physical exam findings as above. Given reported symptoms and physical exam findings, initial differential includes UTI/pyelonephritis, renal/ureteral calculi. Labs notable for slight leukocytosis, no evidence of MYRTLE. Urinalysis notable for 3+ blood, trace leukocytes, do not suspect infection. CT abdomen and pelvis notable for 3 mm calculi at right UVJ with mild hydronephrosis. My interpretation is in agreement with the radiologist's interpretation. Patient updated on results and all questions answered. She reports significant improvement in pain after medication given in the ED. Case discussed with Dr. Berry, urology, who is in agreement with discharge home for outpatient follow-up. Will send prescriptions for prednisone, Flomax, Zofran and morphine for severe pain. Return precautions discussed with patient at bedside. Patient verbalized understanding of and agreement with plan. Differential Diagnosis Differential Diagnoses: The differential diagnosis associated with the presentation includes as per [facility] Admission/Observation Consideration of admission/observation: Escalation of care including admission/observation considered Patient would have been admitted to the hospital had their work up had any findings where hospital admission was appropriate and their clinical presentation warranted hospital admission. Consult Healthcare Provider Management of the patient was discussed with: Carrier Packer (Dr. Berry, urology) Lab Data [facility] Lab Attestation statement: I reviewed the patient's lab results. as per [facility] 07/28/24 11:50 07/28/24 11:50 Labs: Lab Results 07/28/24 07/28/24 Range/Units 11:50 16:05 WBC 11.1 H (4.8-10.8) X10*3/uL RBC 4.54 (4.20-5.50) X10*6/uL Hgb 13.6 (12.0-16.0) g/dl Hct 39.8 (37.0-47.0) % MCV 87.7 (80.0-98.0) fL MCH 30.0 (27.0-33.0) pg MCHC 34.2 (31.0-35.0) g/dl RDW 13.4 (11.0-16.0) % Plt Count 358 (160-400) X10*3/uL MPV 10.4 (9.4-12.3) fL Immature Gran % (Auto) 0.4 (0.0-0.4) % Neut % (Auto) 68.8 (45-73) % Lymph % (Auto) 21.6 (20-40) % [place] % (Auto) 5.3 (2-11) % Eos % (Auto) 3.4 (0-4) % Baso % (Auto) 0.5 (0-2) % Lymph # (Auto) 2.4 (1.2-4.9) X10*3/uL [place] # (Auto) 0.6 (0.1-1.2) X10*3/uL Eos # (Auto) 0.4 (0.0-0.4) X10*3/uL Baso # (Auto) 0.1 (0.0-0.2) X10*3/uL Abs Immat Gran (auto) 0.04 H (0.00-0.03) X10*3/uL Absolute Neuts (auto) 7.6 (2.0-8.3) x10*3/uL Absolute Nucleated RBC 0.000 (0.0-0.012) X10*3/uL Nucleated RBC % (auto) 0.0 (0.0-0.2) /100WBC Sodium 140 (135-145) mmol/L Potassium 4.0 (3.3-5.1) mmol/L Chloride 106 (96-108) mmol/L Carbon Dioxide 23 (22-29) mmol/L Anion Gap 15 (12-20) BUN 10 (9-16) mg/dL Creatinine 0.81 (0.5-1.4) mg/dL Estim Creat Clear Calc 98.3 Estimated GFR > 60 Random Glucose 126 H (60-115) mg/dL Calcium 9.4 (8.4-10.2) mg/dL Magnesium 1.9 (1.6-2.6) mg/dL Total Bilirubin 0.5 (0.0-1.0) mg/dL Direct Bilirubin 0.2 (0.0-0.5) mg/dL AST 24 (5-31) U/L ALT 21 (0-31) U/L Alkaline Phosphatase 68 (39-117) U/L Total Protein 8.3 H (6.5-8.0) g/dL Albumin 4.3 (3.5-5.0) g/dL Lipase 9 (8-78) U/L Beta HCG, Quant < 2 mIU/mL Urine Color Yellow Urine Appearance Clear Urine pH 6.5 (5.0-9.0) Ur Specific [place] 1.015 (1.005-1.025) Urine Protein Negative (Neg-Trace) mg/dL Urine Glucose (UA) Negative (Negative) mg/dL Urine Ketones Trace (Negative) mg/dL Urine Blood Large (3+) H (Negative) Urine Nitrite Negative (Negative) Ur Leukocyte Esterase Trace H (Negative) Urine RBC >20 H (0-2) /HPF Urine WBC 0-5 (0-5) /HPF Ur Squamous Epith Cells 0-2 (0-2) /HPF Urine Bacteria None Seen (None Seen) Hyaline Casts 0-2 (0-2) /LPF Influenza Type A (PCR) NEGATIVE (Negative) Influenza Type B (PCR) NEGATIVE (Negative) RSV RNA Qual (PCR) NEGATIVE (Negative) SARS-CoV-2 RNA (RT-PCR) NEGATIVE (Negative) Independent Interpretation I performed an independent interpretation of an: CT Scan Interpretation: 3mm calculi to R UVJ with mild hydronephrosis Radiology Impression Discussion of test interpretation with radiology: I have reviewed the radiologist's reading. Radiologist Impression: CT/CT abdomen pelvis wo IV con IMPRESSION: 1. Right ureterovesicular junction stone measuring up to 0.3 cm with hhci-pj-jfrhyaqh right-sided hydroureter and mild hydronephrosis. Mild periureteral and perinephric stranding. No additional renal or ureteral stone. No left-sided hydroureteronephrosis. 2. Otherwise, unremarkable examination. External Record Review External record reviewed: Inpatient record, Office record and Outpatient record Prescription Management I considered prescription management with: Pain Medication and Other Medications Administered Discontinued Medications Generic Name Dose Route Start Last Admin Trade Name Indra PRN Reason Stop Dose Admin Morphine Sulfate 4 mg 07/28/24 14:42 07/28/24 14:52 Morphine Sulfate 4 Mg/Ml Cartridge IVPUSH 07/28/24 14:43 4 mg ONCE ONE Administration Protocol Ondansetron HCl 4 mg 07/28/24 11:35 07/28/24 11:46 Ondansetron Odt 4 Mg Tab.Rapdis TRANSLINGU 07/28/24 11:36 4 mg ONCE ONE Administration Ondansetron HCl 4 mg 07/28/24 14:42 07/28/24 14:52 Ondansetron Hcl 4 Mg/2 Ml Vial IVPUSH 07/28/24 14:43 4 mg ONCE ONE Administration Discharge Plan Discharge Clinical Impression: Right distal ureteral calculus Patient Disposition: Home, Self-Care Instructions: Low Oxalate Diet (ED), How to Strain Your Urine (ED), Ureteral Stones (ED) Additional Instructions: You were evaluated in the emergency department for flank pain. Your CT scan showed evidence of a stone in your right ureter. The stone is 3 mm which will likely pass on its own. Your are being provided with a urine strainer to use at home, instructions are included in your discharge paperwork. You are being prescribed prednisone to decrease inflammation, tamsulosin to allow the stone to pass more easily, and morphine as needed for severe pain. You can also take 600 mg of ibuprofen every 6 hours as needed for pain. Your being prescribed ondansetron which you can use every 8 hours as needed for nausea. You are being referred to Urology, please call them 1st thing Saturday morning for an appointment this week. Return to the emergency department if you develop worsening pain, persistent vomiting, fever 100.4? or greater, inability to urinate, or any other concerning symptoms. Prescriptions: New tamsulosin 0.4 mg capsule 0.4 mg PO DAILY Qty: 14 0RF prednisone 20 mg tablet 20 mg PO DAILY Qty: 7 0RF ondansetron 4 mg tablet,disintegrating 4 mg PO Q8H PRN (Reason: nausea and vomiting) Qty: 10 0RF morphine 15 mg tablet 15 mg PO Q8H PRN (Reason: severe pain (scale score 7-10)) Qty: 8 0RF Rx Instructions: Partial Fill upon patient request. No Action metronidazole 500 mg tablet 500 mg PO BID 7 Days Qty: 14 0RF Rx Instructions: Take with food, Avoid alcohol and vinegar products acetaminophen [Tylenol Extra Strength] 500 mg tablet 1,000 mg PO Q6H PRN (Reason: fever or pain) Qty: 20 0RF cyclobenzaprine 10 mg tablet 10 mg PO TID PRN (Reason: muscle spasm) Qty: 14 0RF norethindrone (contraceptive) 0.35 mg tablet 0.35 mg PO DAILY Qty: 84 4RF Referrals: [facility] [Provider Group] - 3 days Stand Alone Forms: Work/School Release Print Language: Tamazight
[2024-07-28 11:33] VITALS: BP 132/84; PULSE 72; RESP 20; TEMP 36.2; O2SAT 99; BMI 34.0
[2024-07-28] MEDS: Ondansetron ODT 4 MG TAB.RAPDIS TRANSLINGU (11:46)
[2024-07-28 11:54] LABS: MANUAL DIFF FLAG NO
[2024-07-28 12:01] LABS: Basophils Absolute Auto 0.1 X10*3/uL (0.0-0.2); Basophils Percent Auto 0.5 % (0-2); Eosinophils Absolute Auto 0.4 X10*3/uL (0.0-0.4); Eosinophils Percent Auto 3.4 % (0-4); Hematocrit 39.8 % (37.0-47.0); Hemoglobin 13.6 g/dl (12.0-16.0); Imm Gran Abs Auto 0.04 X10*3/uL (0.00-0.03); Imm Gran Pct Auto 0.4 % (0.0-0.4); Lymphocytes Absolute Auto 2.4 X10*3/uL (1.2-4.9); Lymphocytes Percent Auto 21.6 % (20-40); Mean Corpuscular HGB Conc 34.2 g/dl (31.0-35.0); Mean Corpuscular Volume 87.7 fL (80.0-98.0); Mean Platelet Volume 10.4 fL (9.4-12.3); Monocytes Absolute Auto 0.6 X10*3/uL (0.1-1.2); Monocytes Percent Auto 5.3 % (2-11); Neutrophils Absolute Auto 7.6 x10*3/uL (2.0-8.3); Neutrophils Percent Auto 68.8 % (45-73); Platelet Count 358 X10*3/uL (160-400); Red Blood Count 4.54 X10*6/uL (4.20-5.50); Red Cell Distribution Width 13.4 % (11.0-16.0); White Blood Count 11.1 X10*3/uL (4.8-10.8)
[2024-07-28 12:20] LABS: Alanine Aminotransferase 21 U/L (0-31); Albumin Level 4.3 g/dL (3.5-5.0); Alkaline Phosphatase 68 U/L (39-117); Anion Gap 15 (12-20); Aspartate Amino Transferase 24 U/L (5-31); Bilirubin Direct 0.2 mg/dL (0.0-0.5); Bilirubin Total 0.5 mg/dL (0.0-1.0); Blood Urea Nitrogen 10 mg/dL (9-16); Calcium 9.4 mg/dL (8.4-10.2); Carbon Dioxide 23 mmol/L (22-29); Chloride 106 mmol/L (96-108); Creatinine Clr Calc Pharmacy 98.3; Estimated Glomerular Filt Rate > 60; Glucose Random 126 mg/dL (60-115); Lipase 9 U/L (8-78); Magnesium 1.9 mg/dL (1.6-2.6); Sodium 140 mmol/L (135-145); Total Protein 8.3 g/dL (6.5-8.0)
[2024-07-28 12:30] LABS: HCG Quantitative < 2 mIU/mL
[2024-07-28 12:39] LABS: Influenza A PCR NEGATIVE (Negative); Influenza B PCR NEGATIVE (Negative); Resp Syncy Virus RNA Qual PCR NEGATIVE (Negative); SARS COV2 PCR INHOUSE NEGATIVE (Negative)
[2024-07-28] MEDS: ondansetron HCL 4 MG/2 ML VIAL IVPUSH (14:52)
[2024-07-28] MEDS: Morphine Sulfate 4 MG/ML CARTRIDGE IVPUSH (14:52)
[2024-07-28 16:15] LABS: Appearance Urine Clear; Color Urine Yellow; Glucose Urine UA Negative (Negative); Leukocyte Esterase Urine Trace (Negative); Nitrite Urine Negative (Negative); PH 6.5 (5.0-9.0); Specific Gravity - Urine 1.015 (1.005-1.025); UMIC TRIGGER UACC YES; Urine Blood Large (3+) (Negative); Urine Ketones Trace mg/dL (Negative); Urine Protein Negative (Neg-Trace)
[2024-07-28 16:39] LABS: Bacteria Urine None Seen (None Seen); Hyaline Casts Urine 0-2 /LPF (0-2); RBC Urine >20 /HPF (0-2); Squamous Epithelial Cell Urine 0-2 /HPF (0-2); WBC Urine 0-5 /HPF (0-5)
[2024-07-28 16:42] VITALS: BP 105/54; PULSE 91; RESP 16; TEMP 36.3; O2SAT 99
[2024-07-28 18:27] VITALS: BP 105/54; PULSE 91; RESP 16; TEMP 36.3; O2SAT 99
== END 2024-07-28 18:28 | disposition home or self-care (01) ==
PROVIDERS: Physician Assistant Medical; Emergency Provider Emergency Medicine
DX: N20.1 Calculus of ureter (principal); R10.9 Unspecified abdominal pain; R11.2 Nausea with vomiting, unspecified; R19.7 Diarrhea, unspecified; R10.2 Pelvic and perineal pain; Z03.818 Encounter for observation for suspected exposure to other biological agents ruled out
CPT/HCPCS: 0241U; 36415; 74176; 80048; 80076; 81001; 83690; 83735; 84702; 85025; 96374; 96375; 99284; J2270; J2405

== ENCOUNTER 2024-09-30 10:03 | Outpatient (AMB) | payer OTHER, SELFPAY ==
[2024-09-30 10:06] VITALS: BP 100/60; BMI 34.0
--- NOTE | 2024-09-30 10:06 | A.OFFVIS_ITS ---
Vital Signs 09/30/24 10:06 Height 5 ft 1 in Weight 180 lb BMI 34.0 BP 100/60 Intake Visit Reasons: 3 month pill check Ear Mold Laboratory Technician Required: No Ear Mold Laboratory Technician Services: Ear Mold Laboratory Technician Present Information Interpreted: clinical only Automated Teller Manager: Automated Teller Manager Present Allergies No Known Allergies Allergy (Verified 09/30/24 10:07) Medication List - Last Reconciled 09/30/24 by Mary Rooney CNM No Known Home Meds Is last menstrual period known: Yes Last menstrual period: 09/19/24 HPI HPI 3 month pill check: Details: Patient is scheduled as a three-month pill check but she stopped taking the control pills because she decided not to be sexually active anymore. She does want to get tested for STIs though just to be on the safe side. She has educating herself a lot about safer sex and exposures and taking care of herself and feeling good she has a an appointment coming up in October for a new primary care provider that she has been waiting on it will be in the same practice where she brings her daughter in [place]. (Peds on 1 side at the care of the other at [address] in [place]). 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 [facility] Medical History Syphilis Social History Patient Tobacco Use Status: Never used Tobacco Substance Use Type: Marijuana Female Reproductive History Menstrual Age of Menarche: 10 Duration of menses: 3-5 days Date of last menstrual period: 09/19/24 control method: none Total pregnancies: 1 Full term: 1 Date of last pap smear: 02/14/23 (negative) Physical Exam Vital Signs: Last Vital Signs BP 100/60 09/30/24 10:06 BMI result Body Mass Index 34.0 External Female Exam: normal external appearance and normal appearance of the urethra Speculum Exam - Vagina: normal appearance of the vagina and normal vaginal discharge Speculum Exam - Cervix: normal appearance of the cervix and Cervical os closed Assessment & Plan Assessment & Plan (1) Syphilis: Comment: She has minimally reactive FTA SHe has no titer available She has had false positive she says in past Code(s): A53.9 - Syphilis, unspecified Category: Medical (2) Encounter for screening examination for sexually transmitted disease: Code(s): Z11.3 - Encounter for screening for infections with a predominantly sexual mode of transmission Category: Medical (3) control counseling: Code(s): Z30.09 - Encounter for other general counseling and advice on contraception Category: Medical Plan Reviewed safer sex in general and screening tests and what cervical cancer screenings are looking for and screenings for STIs in other areas including [facility] as well. She does have a dentist. Also reviewed her menstrual cycle and the cervical mucus changes that are normal and happen throughout the cycle screening done today for gonorrhea chlamydia trichomoniasis bacteria and Gabriella. Discussed that the latter 2 are normal omar. Also discussed her history of syphilis we will screen today for hepatitis-B C syphilis and HIV discussed that if the syphilis test comes back positive what she needs to wait for our the titers which would say whether not she was reinfected., so not to panic if she gets a call. Discussed the menstrual cycle and signs and symptoms of ovulation also from the standpoint of self protection if she is not contraceptive otherwise. Timeframe/Date Comment labs prn and annuals Orders: Orders HIV Ab/Ag Today A53.9 - Syphilis, unspecified, Z11.3 - Encounter for screening for infections with a predominantly sexual mode of transmission Syphilis Screen Today A53.9 - Syphilis, unspecified, Z11.3 - Encounter for screening for infections with a predominantly sexual mode of transmission Hepatitis B Surface Antigen Today A53.9 - Syphilis, unspecified, Z11.3 - Encounter for screening for infections with a predominantly sexual mode of transmission Hepatitis C Antibody Today A53.9 - Syphilis, unspecified, Z11.3 - Encounter for screening for infections with a predominantly sexual mode of transmission Coding Level of Care Code Est Pt Level 3 (68502) Diagnoses Syphilis A53.9 Encounter for screening examination for sexually transmitted disease Z11.3 control counseling Z30.
--- OUTSIDE RECORDS SUMMARY | 2024-09-30 11:52 | XMS_ITS | Clinical Summary ---
Author Organization [facility] Address [address] [place] [address] Care Team Providers Care Cat Wagon Operator Name Role Phone Unavailable Primary Care Provider Unavailabl e Medical History Medical History Date Comments Asthma DX:Asthma Anxiety DX:Anxiety Marijuana use 05/27/2020 DX:Marijuana use Social History Tobacco Use Types Packs/Day Years Used Date Smoking Tobacco: Never Assessed Comments Unknown Sex and Gender Information Value Date Recorded Sex Assigned at Not on file Legal Sex Female 6:17 PM EST Gender Identity Not on file Sexual Orientation Not on file Obstetrics History Plan of Treatment Health Maintenance Due Date Last Done Comments DTaP,Tdap,and Td Vaccines (1 - Tdap) 2013 Hepatitis B Vaccines (1 of 3 - 19+ 3-dose series) 2013 Cervical Cancer Screening: P ap Smear 2015 Depression Screening 07/21/2022 HIV Screening 07/21/2022 Hepatitis C Screening 07/21/2022 Social Influencers of Health Screening 07/21/2022 COVID-19 Vaccine ( - 2023-2 5 season) 2024 Influenza Vaccine (#1) 2024 HIB Vaccines Aged Out No longer eligi ble based on patient's age to complete this topic HPV Vaccines Aged Out No longer eligi ble based on patient's age to complete this topic Hepatitis A Vaccines Aged Out No long er eligible based on patient's age to complete this topic IPV Vaccines Aged Out No longer eligi ble based on patient's age to complete this topic MMR Vaccines Aged Out No longer eligi ble based on patient's age to complete this topic Meningococcal ACWY Vaccine Aged Out N o longer eligible based on patient's age to complete this topic Meningococcal B Vacine Aged Out No lo nger eligible based on patient's age to complete this topic Pneumococcal Vaccine: Pediat rics (0 to 5 Years) and At-Risk Patients (6 to 64 Years) Aged Out No longer eligible b ased on patient's age to complete this topic RSV Immunization Patients Un glory 20 months Aged Out No longer eligible b ased on patient's age to complete this topic Varicella Vaccines Aged Out No longer eligible based on patient's age to complete this topic
== END 2024-09-30 10:42 | disposition home or self-care (01) ==
PROVIDERS: Visit Provider Advanced Practice Midwife
DX: Z30.09 Encounter for other general counseling and advice on contraception (principal); A53.9 Syphilis, unspecified
CPT/HCPCS: 99213

== ENCOUNTER 2024-09-30 10:03 | Outpatient (REF) | payer MEDICAID, SELFPAY ==
--- OUTSIDE RECORDS SUMMARY | 2024-09-30 12:45 | XMS_ITS | Clinical Summary ---
Author Organization [facility] Address [address] [place] [address] Care Team Providers Care Purchase Analyst Name Role Phone Unavailable Primary Care Provider [...]
[2024-09-30 14:54] LABS: HBsAGNum1 0.27 S/CO (0.00-0.99); HIV AB/AG Nonreactive (Nonreactive); HIV Num 1 0.05 S/CO (0.00-0.99); Hepatitis B Surface Antigen Negative (Negative); ~HepC Num1 0.14 S/CO (0.00-0.79); ~Hepatitis C Antibody Nonreactive (Nonreactive)
[2024-09-30 17:59] LABS: Bacterial Vaginosis PCR NEGATIVE (Negative); Candida Group PCR NOT DETECTED (Not Detect); Candida glab krusei PCR NOT DETECTED (Not Detect); Trichomonas vaginalis PCR NOT DETECTED (Not Detect)
[2024-10-01 03:46] LABS: Syphilis Screen Nonreactive (Nonreactive)
[2024-10-01 07:16] LABS: CT PCR NOT DETECTED (Not Detect.); NG PCR NOT DETECTED (Not Detect.)
== END 2024-09-30 10:04 | disposition home or self-care (01) ==
LOC: HO.LAB 10:03
PROVIDERS: Visit Provider Advanced Practice Midwife
DX: Z11.3 Encounter for screening for infections with a predominantly sexual mode of transmission (principal); A53.9 Syphilis, unspecified; N89.8 Other specified noninflammatory disorders of vagina; Z20.2 Contact with and (suspected) exposure to infections with a predominantly sexual mode of transmission
CPT/HCPCS: 81515; 86780; 86803; 87340; 87389; 87491; 87591; 99212

== ENCOUNTER 2024-09-30 11:05 | Outpatient (REF) | payer MEDICAID, SELFPAY | END 2024-09-30 11:06 | disposition home or self-care (01) | LOC: HO.HHCL 11:05 | PROVIDERS: Visit Provider Advanced Practice Midwife | DX: Z13.89 Encounter for screening for other disorder (principal) ==

== ENCOUNTER 2025-03-03 11:53 | Emergency (ER) | payer MEDICAID, SELFPAY ==
--- NOTE | ~2025-03-03 | XR_ITS ---
EXAMINATION: XR CHEST 2 VIEWS HISTORY: cough COMPARISON: Comparison is made with the prior examination dated 07/18/2021. FINDINGS: PA and lateral views of the chest are submitted. The lungs are expanded and clear. There is no pleural effusion, pneumothorax, or pulmonary vascular congestion. The heart is normal in size. The bones are intact. XR/XR chest 2V IMPRESSION: No acute cardiopulmonary abnormality. Electronically signed by: Juan Abebe MD 03/03/2025 12:44 PM EDT
--- NOTE | ~2025-03-03 | XR_ITS ---
EXAMINATION: XR LUMBOSACRAL SPINE CLINICAL INFORMATION: right lower back pain COMPARISON: 05/15/2023. TECHNIQUE: Three views of the lumbosacral spine. FINDINGS: No significant scoliosis. Normal lordosis. No subluxations. No fractures, compression deformities, or suspicious bone lesions. Stable tiny Schmorl's nodes in the endplates of L3-4. Disc spaces are preserved. Facets are normally aligned. The paraspinal soft tissues appear normal. XR/XR lumbar spine 2-3V IMPRESSION: Normal lumbar spine radiographs. Electronically signed by: Gustavo Mcpherson MD 03/03/2025 12:46 PM EDT
[2025-03-03 12:06] VITALS: BP 106/60; PULSE 90; RESP 16; TEMP 37; O2SAT 96; BMI 32.0
--- NOTE | 2025-03-03 12:06 | ED.GENADULT ---
HPI - General Adult General Chief complaint: Back Pain/Injury Stated complaint: back pain Time Seen by Provider: 03/03/25 12:41 Source: patient Mode of arrival: ambulatory Limitations: no limitations History of Present Illness ED Provider: Demetria Buck PA-C HPI narrative: patient reports her emergency department today for evaluation of 3 days of a cough sore throat and body aches. Patient is seeking treatment but this morning her low back pain her even more. She has had no falls abdominal or paresthesias. She reports having a fever for the 1st day that was tactile. Since that time she reports a decrease in appetite but does not feel nauseous no vomiting or diarrhea. She reports her cough is worse at nighttime but it is dry and nonproductive. She is not sure whether or not she has a history of allergies but denies any history of reactive airway disease DM or tobacco use. No known sick contacts or travel. Denying any dizziness or headaches and no joint pain or rashes. She is able tolerate p.o. fluids and void regularly. She has taken Robitussin and use cough drops and it has helped her. Patient denies personal history of cancer, IVDU, fevers, chills, night sweats, unintentional wt loss, saddle anesthesia, and change/loss in bladder/ bowel function. Related Data Previous Rx's ?Medication ?Instructions ?Recorded albuterol sulfate 90 mcg/actuation 1 inh inhalation QID PRN shortness 03/03/25 aerosol inhaler (Ventolin HFA) of breath or wheezing #6.7 grams inhalational spacing device #1 ea 03/03/25 ipratropium bromide 21 mcg (0.03 2 spray intranasal BID #30 mL 03/03/25 %) nasal spray prednisone 20 mg tablet 40 mg (2 x 20 mg) PO DAILY #10 tabs 03/03/25 Allergies Allergy/AdvReac Type Severity Reaction Status Date / Time No Known Allergies Allergy Verified 03/03/25 12:10 Review of Systems Review of Systems: Yes all other systems are reviewed and are negative [facility] Past Medical History Attestation statement: The following information was validated with the patient. Source: old records reviewed and nursing notes reviewed Medical History Syphilis Social History Social History (Reviewed 09/30/24 @ 10:12 by Lyric Andino [facility] [address]) Patient Tobacco Use Status: Never used Tobacco Substance Use Type: Marijuana Advance Directives: No Advance Directives Information Provided: Yes Do you have a plan to hurt others: No Plan Physical Exam ED Vital Signs: Vital Signs - 24 hr 03/03/25 12:06 Temperature 98.6 F Pulse Rate 90 Respiratory Rate 16 Blood Pressure 106/60 Pulse Oximetry 96 Oxygen Delivery Method Room Air BMI result Body Mass Index 32.0 General: Appears in no acute distress, appears well nourished body habitus is normal, appears stated age. No septic or ill-appearing. Vitals reviewed normal, PMH/Social and Surgical hx reviewed including allergies and current medications. - reviewed for prior visits here and not read Head: Normocephalic, no obvious trauma or skin lesions noted. Eyes: EOMI ENMT: moist oral mucosa, uvula is midline no trismus no tonsillar edema or erythema tongue is midline, bilateral serous why opacified serous effusions without any bulge or erythema TM intact canal clear, trace clear discharge nasal Neck: trachea midline. no lymphadenopathy Cardiovascular: peripheral perfusion normal, Regular heart rate regular rhythm Respiratory: no respiratory distress, mild diffuse expiratory wheezing with no stridor no crackles or rales or rhonchi present Abdomen: nondistended soft nontender Extremities: warm and moving without difficulty Psych: Cooperative Neuro: Alert and oriented. Course Course Course Narrative: 03/03/25 1207 MARISOL Juarez This is a Rapid Medical Examination (RME) performed by Jennifer Wong PA-C in triage. Full HPI, ROS, assessment and treatment plan per primary provider in the Main ED. Hx: 29 yo F here w/ upper respiratory symptoms, cough, and mid back pain. reports coughing, woke up w/ mid back pain unsure if she strained the back coughing. no recent heavy lifting. no PE/vitals: ttp over R paraspinal musculature. Plan: cxr, viral swabs Medical Decision Making Medical Decision Making [facility] Narrative: The patient presents with symptoms that do not suggest middle or external ear infection, strep throat, mononucleosis, tonsillitis, bacterial sinusitis, bronchitis, or pneumonia. Physical examination reveals no significant findings such as otalgia, erythema, exudate, lymphadenopathy,[facility] score is 0 testing for strep not indicated test pending for RSV COVID and flu. They have reassuring vitals and are maintaining their fluids. patient had a rhythm and it will exam in triage with both a chest x-ray and lumbar x-ray ordered ahead of time. chest x-ray is clear no evidence for pneumonia lumbar spine is unremarkable and no evidence of bony abnormality. there is no evidence of a middle or external ear infection strep throat mono or tonsillitis.Presentation not consistent with acute coronary syndrome or acute cord syndrome emergent MRI not indicated today abdomen is soft and nontender no CT of the abdomen and pelvis is warranted today. Given her mild diffuse squeezing her presentation is most likely to be acute bronchitis likely due to a virus. She will be given an he states he has about closely with primary care providerThe patient is stable, and either the patient or accompanying family/friend was provided with strict return precautions and ED warning signs. [id number] medications and adequate hydration were recommended for symptom management. The patient agreed with the treatment plan and was discharged home in stable condition. Differential Diagnosis Differential Diagnoses: The differential diagnosis associated with the presentation includes See [facility] Admission/Observation Patient would have been admitted to the hospital had herwork up had any findings where hospital admission was appropriate and her clinical presentation warranted hospital admission. Lab Data [facility] Lab Attestation statement: I reviewed the patient's lab results. Pending RSV COVID and flu, final results would not change plan therefore patient to be discharged Labs: Lab Results 03/03/25 Range/Units 12:16 Influenza Type A (PCR) NEGATIVE (Negative) Influenza Type B (PCR) NEGATIVE (Negative) RSV RNA Qual (PCR) NEGATIVE (Negative) SARS-CoV-2 RNA (RT-PCR) NEGATIVE (Negative) Independent Interpretation I performed an independent interpretation of an: Plain X-Ray Interpretation: no infiltrate Radiology Impression Discussion of test interpretation with radiology: I have reviewed the radiologist's reading. Radiologist Impression: no acute process with either the chest or the spine Tests considered The following testing was considered but not selected: would have considered strep test had patient is [facility] score warranted this. Prescription Management I considered prescription management with: Pain Medication, Antiviral and Antibiotic Discharge Plan Discharge Clinical Impression: Acute bronchitis, Chronic serous otitis media, Acute vasomotor rhinitis Patient Disposition: Home, Self-Care Instructions: Acute Bronchitis (ED), Wheezing (ED) Additional Instructions: you were seen in the emergency department today for respiratory symptoms. On physical exam he did have mild diffuse wheezing. You are not hypoxic breathing treatment was not indicated. Given him no that was history of asthma we will try outpatient therapy with an albuterol inhaler which will help with wheezing and shortness of breath however unfortunately does not help with the cough. You had a chest x-ray that showed no evidence for pneumonia. Your COVID flu and RSV test is pending. This would not change management director if positive Acute bronchitis is a common clinical condition characterized by an acute onset but persistent cough, with or without sputum production. It is typically self-limited, resolving often within three weeks. Symptoms result from inflammation of the lower respiratory tract and are most frequently due to a viral infection. For most patients, acute bronchitis is a self-limited illness that does not require specific diagnostic testing or treatment. Treatment is focused on patient education and supportive care. Antibiotics are not needed for the great majority of patients with acute bronchitis but are greatly overused for this condition. Reducing antibiotic use for acute bronchitis is a national and international health care priority. Non pharmaceutical treatment: throat lozenges, warm tea with honey, and/or smoking cessation or avoidance of secondhand smoke. If you feel your symptoms are worsening, you develop a fever, trouble breathing, or any other new, concerning symptoms please be re-evaluated immediately. Inhaler Instructions: Prepare the Inhaler: Open the protective cover of the inhaler and check if it's clean and undamaged. Hold the inhaler upright and slide the cover down until you hear a click. Exhale: Breathe out gently, away from the inhaler, to ensure your lungs are empty before inhaling the medication. Inhale the Medication: Place the mouthpiece between your lips and form a tight seal around it. Inhale the medication deeply and steadily through your mouth. Avoid blocking the air vents with your fingers or lips. Hold Your Breath: Hold your breath for about 5 to 10 seconds to allow the medication to reach deep into your lungs. Exhale Slowly: Breathe out slowly and gently away from the inhaler. Close the Inhaler: Slide the cover of the inhaler back-up to protect the mouthpiece until your next use. Rinse Your Mouth: If instructed by your healthcare provider, rinse your mouth with water after using the inhaler to help reduce the risk of developing oral thrush. Clean the Inhaler: Regularly clean the mouthpiece with a dry tissue to prevent buildup of powder residue. Prescriptions: New albuterol sulfate [Ventolin HFA] 90 mcg/actuation HFA aerosol inhaler 1 inh inhalation QID PRN (Reason: shortness of breath or wheezing) Qty: 6.7 1RF prednisone 20 mg tablet 40 mg PO DAILY Qty: 10 0RF ipratropium bromide 21 mcg (0.03 %) spray,non-aerosol 2 spray intranasal BID Qty: 30 0RF Rx Instructions: administer into each nostril (DME) inhalational spacing device Spacer See Rx Instructions .Route Qty: 1 0RF Rx Instructions: As directed Referrals: Physician,Unknown J [Primary Care Provider, Medical] Stand Alone Forms: Work/School Release Interventions: ED Discharge Assessment Last Done: 03/03/25 13:20 Discharge Date/Time: 03/03/25 13:23 Print Language: Indonesian
[2025-03-03 13:05] LABS: Resp Syncy Virus RNA Qual PCR NEGATIVE (Negative); SARS COV2 PCR INHOUSE NEGATIVE (Negative)
[2025-03-03 13:20] VITALS: BP 106/60; PULSE 90; RESP 16; TEMP 37; O2SAT 96
--- OUTSIDE RECORDS SUMMARY | 2025-03-03 14:00 | XMS_ITS | Clinical Summary ---
Author Organization [facility] it Address [address] [place] [address] Care Team Providers Care Cna Name Role Phone Unavailable Primary Care Provider [...] 2023-2 5 season) 2024 Influenza Vaccine (#1) 2025 HIB Vaccines Aged Out No longer eligi [...] age to complete this topic Meningococcal B Vaccine Aged Out No l onger eligible based on patient's age to complete this topic Pneumococcal Vaccine: Pediat rics (0 to 5 Years) and At-Risk Patients (6 to 49 Years) Aged Out No longer eligible b ased on patient's age to complete this topic RSV Immunization Patients Un glory 20 months Aged Out No longer eligible b ased on patient's age to complete this topic Varicella Vaccines Aged Out No longer eligible based on patient's age to complete this topic
== END 2025-03-03 13:23 | disposition home or self-care (01) ==
PROVIDERS: Physician Assistant Medical; Emergency Provider Emergency Medicine Emergency Medical Services
DX: J20.9 Acute bronchitis, unspecified (principal); H65.23 Chronic serous otitis media, bilateral; J30.0 Vasomotor rhinitis; R05.9 Cough, unspecified; R50.9 Fever, unspecified; M54.50 Low back pain, unspecified; R10.31 Right lower quadrant pain; M79.10 Myalgia, unspecified site; Z03.818 Encounter for observation for suspected exposure to other biological agents ruled out
CPT/HCPCS: 71046; 72100; 87637; 99282; 99283; 99284

== ENCOUNTER → 2025-03-03 12:07 | Outpatient (BNV) | payer MEDICAID, SELFPAY | PROVIDERS: Emergency Provider Emergency Medicine Emergency Medical Services; Visit Provider Radiology Diagnostic Radiology | DX: R05.9 Cough, unspecified (principal); M54.50 Low back pain, unspecified | CPT/HCPCS: 71046; 72100 ==

== ENCOUNTER 2025-05-05 09:57 | Emergency (ER) | payer OTHER, SELFPAY ==
[2025-05-05 10:22] VITALS: BP 115/75; PULSE 74; RESP 18; TEMP 36.8; O2SAT 95; BMI 34.7
--- NOTE | 2025-05-05 10:44 | ED_ITS ---
HPI - Female Genitourinary General Chief complaint: Urogenital-Female Stated complaint: lower abd pain, discharge Time Seen by Provider: 05/05/25 10:44 Source: patient Mode of arrival: ambulatory Limitations: no limitations History of Present Illness ED Provider: [facility] Narrative: 30-year-old woman presenting with malodorous vaginal discharge, whitish, sexually active with 1 partner, intermittent protection, tried Monistat x2 without relief lower pelvic pressure is well, no fevers or chills. Related Data Previous Rx's ?Medication ?Instructions ?Recorded albuterol sulfate 90 mcg/actuation 1 inh inhalation QI D PRN shortness 03/03/25 aerosol inhaler (Ventolin HFA) of breath or wheezing # 6.7 grams inhalational spacing device #1 ea 03/03/25 ipratropium bromide 21 mcg (0.03 2 spray intranasal BI D #30 mL 03/03/25 %) nasal spray prednisone 20 mg tablet 40 mg (2 x 20 mg) PO DAILY # 10 tabs 03/03/25 Allergies Allergy/AdvReac Type Severity Reaction Status Date / Time No Known Allergies Allergy Verified 05/05/25 10:25 Review of Systems 2 Constitutional: Constitutional: Reports as per [facility] Past Medical History Medical History Syphilis Social History Social History Patient Tobacco Use Status: Never used Tobacco Smoked in Last 30 Days: No Substance Use Type: Marijuana Advance Directives: No Advance Directives Information Provided: No Do you have a plan to hurt others: No Plan Physical Exam 2 Vital Signs: Vital Signs: Last Vital Signs Temp 98.2 F 05/05/25 10:22 Pulse 74 05/05/25 10:22 Resp 18 05/05/25 10:22 BP 115/75 05/05/25 10:22 Pulse Ox 95 05/05/25 10:22 O2 Del Method Room Air 05/05/25 10:22 BMI result Body Mass Index 34.7 Const: Other: * Gen: ?Overall well-appearing patient * CV: RRR, no obvious murmurs appreciated * Resp: ?No wheezing rales rhonchi no stridor moving air well * Abd: ?Bowel sounds are present, no tenderness no rebound no rigidity * ; deferred did not feel it is going to contribute to my workup discuss this with the patient she agrees * MSK: FROM, strength 5/5 all extremities * Skin: Warm, dry, intact, * Neuro: ?Alert and oriented x3, moving upper and lower extremities symmetrically, no obvious facial asymmetry noted Medical Decision Making Medical Decision Making [facility] Narrative: Overall well-appearing patient, I did not suspect that she has underlying tubo- ovarian abscess she is nonfebrile, has benign abdominal exam I did not feel further imaging such as ultrasound is indicated, we will check for - related emergencies as well, I deferred on pelvic exam after discussing with the patient that as she is presenting with something I feel is likely due to BV or yeast infection and no bleeding and fairly benign abdominal exam pelvic exam would not contribute to management and diagnosis, patient agreed with my reasoning Differential Diagnosis Differential Diagnoses: The differential diagnosis associated with the presentation includes (STI, tubo-ovarian abscess, ovarian torsion, BV) Admission/Observation Consideration of admission/observation: Escalation of care including admission/observation considered Lab Data 05/05/25 11:03 05/05/25 11:03 Labs: Lab Results 05/05/25 Range/Units 11:03 WBC 10.0 (4.8-10.8) X10*3/uL RBC 4.54 (4.20-5.50) X10*6/uL Hgb 13.3 (12.0-16.0) g/dl Hct 39.4 (37.0-47.0) % MCV 86.8 (80.0-98.0) fL MCH 29.3 (27.0-33.0) pg MCHC 33.8 (31.0-35.0) g/dl RDW 13.5 (11.0-16.0) % Plt Count 296 (160-400) X10*3/uL MPV 10.3 (9.4-12.3) fL Immature Gran % (Auto) 0.5 H (0.0-0.4) % Neut % (Auto) 64.1 (45-73) % Lymph % (Auto) 24.2 (20-40) % [place] % (Auto) 6.4 (2-11) % Eos % (Auto) 4.2 H (0-4) % Baso % (Auto) 0.6 (0-2) % Lymph # (Auto) 2.4 (1.2-4.9) X10*3/uL [place] # (Auto) 0.6 (0.1-1.2) X10*3/uL Eos # (Auto) 0.4 (0.0-0.4) X10*3/uL Baso # (Auto) 0.1 (0.0-0.2) X10*3/uL Abs Immat Gran (auto) 0.05 H (0.00-0.03) X10*3/uL Absolute Neuts (auto) 6.4 (2.0-8.3) x10*3/uL Absolute Nucleated RBC 0.000 (0.0-0.012) X10*3/uL Nucleated RBC % (auto) 0.0 (0.0-0.2) /100WBC Urine Color Yellow Urine Appearance Turbid Urine pH 8.5 (5.0-9.0) Ur Specific [place] 1.020 (1.005-1.025) Urine Protein Negative (Neg-Trace) mg/dL Urine Glucose (UA) Negative (Negative) mg/dL Urine Ketones Negative (Negative) mg/dL Urine Blood Negative (Negative) Urine Nitrite Negative (Negative) Ur Leukocyte Esterase Negative (Negative) T. vaginalis (PCR) NOT DETECTED (Not Detect) Bact vaginosis (PCR) POSITIVE A (Negative) C. krusei/glabrata (PCR) NOT DETECTED (Not Detect) Gabriella group (PCR) DETECTED A (Not Detect) Tests considered The following testing was considered but not selected: Ultrasound pelvic, transvaginal Prescription Management I considered prescription management with: Antibiotic Discharge Plan Discharge Clinical Impression: Bacterial vaginosis Instructions: Bacterial Vaginosis (ED) Additional Instructions: Your swab came back positive for bacterial vaginosis treatment metronidazole 500 mg twice a day for 7 days On metronidazole, do NOT drink alcohol.? Call your provider if a metallic taste, loss of appetite, or nausea makes it difficult for you to eat.? Call your provider promptly if tingling develops in your hands or feet after you have taken a total of 30 grams or more of metronidazole. ? The rest of your cultures if they come back positive for gonorrhea or chlamydial you will get a call I will also give you a dose of fluconazole for vaginal yeast in the ER Prescriptions: No Action albuterol sulfate [Ventolin HFA] 90 mcg/actuation HFA aerosol inhaler 1 inh inhalation QID PRN (Reason: shortness of breath or wheezing) Qty: 6.7 1RF prednisone 20 mg tablet 40 mg PO DAILY Qty: 10 0RF ipratropium bromide 21 mcg (0.03 %) spray,non-aerosol 2 spray intranasal BID Qty: 30 0RF Rx Instructions: administer into each nostril (DME) inhalational spacing device Spacer See Rx Instructions .Route Qty: 1 0RF Rx Instructions: As directed Print Language: [place]
[2025-05-05 11:11] LABS: MANUAL DIFF FLAG NO
[2025-05-05 11:12] LABS: Appearance Urine Turbid; Glucose Urine UA Negative (Negative); PH 8.5 (5.0-9.0); Specific Gravity - Urine 1.020 (1.005-1.025)
[2025-05-05 11:13] LABS: Hematocrit 39.4 % (37.0-47.0); Hemoglobin 13.3 g/dl (12.0-16.0); Imm Gran Abs Auto 0.05 X10*3/uL (0.00-0.03); Imm Gran Pct Auto 0.5 % (0.0-0.4); Lymphocytes Absolute Auto 2.4 X10*3/uL (1.2-4.9); Mean Corpuscular HGB Conc 33.8 g/dl (31.0-35.0); Mean Corpuscular Hemoglobin 29.3 pg (27.0-33.0); Mean Corpuscular Volume 86.8 fL (80.0-98.0); NRBC Abs Auto 0.000 X10*3/uL (0.0-0.012); NRBC Pct Auto 0.0 /100WBC (0.0-0.2); Platelet Count 296 X10*3/uL (160-400); Red Blood Count 4.54 X10*6/uL (4.20-5.50); White Blood Count 10.0 X10*3/uL (4.8-10.8)
[2025-05-05 12:16] LABS: Bacterial Vaginosis PCR POSITIVE (Negative); Candida Group PCR DETECTED (Not Detect); Candida glab krusei PCR NOT DETECTED (Not Detect); Trichomonas vaginalis PCR NOT DETECTED (Not Detect)
[2025-05-05 12:42] LABS: Alanine Aminotransferase 14 U/L (0-31); Albumin Level 4.3 g/dL (3.5-5.0); Alkaline Phosphatase 59 U/L (39-117); Anion Gap 8 (12-20); Aspartate Amino Transferase 27 U/L (5-31); Blood Urea Nitrogen 11 mg/dL (9-16); Calcium 9.3 mg/dL (8.4-10.2); Carbon Dioxide 26 mmol/L (22-29); Chloride 107 mmol/L (96-108); Creatinine Clr Calc Pharmacy 105.1; Estimated Glomerular Filt Rate > 60; Magnesium 2.0 mg/dL (1.6-2.6); Potassium 4.0 mmol/L (3.3-5.1); Sodium 137 mmol/L (135-145); Total Protein 7.5 g/dL (6.5-8.0)
[2025-05-05 12:47] LABS: CT PCR NOT DETECTED (Not Detect.); NG PCR NOT DETECTED (Not Detect.)
[2025-05-05 13:15] VITALS: BP 115/75; PULSE 74; RESP 18; TEMP 36.8; O2SAT 95
--- OUTSIDE RECORDS SUMMARY | 2025-05-05 13:53 | XMS_ITS | Clinical Summary ---
Author Organization [facility] [[email or web address]] Address [address] [place] [address] Care Team Prov[address] Care Drive Thru Order Taker Name Role Phone Unavailable Primary Care Provider [...] Screening: P ap Smear 2015 Depression Screening 08/19/2024 COVID-19 Vaccine ( - 2023-2 5 season) 2025 Influenza Vaccine (#1) 2025 HIB Vaccines Aged [...]
== END 2025-05-05 13:16 | disposition home or self-care (01) ==
PROVIDERS: Physician Assistant Medical; Emergency Provider Emergency Medicine
DX: B37.31 Acute candidiasis of vulva and vagina (principal); R10.2 Pelvic and perineal pain; Z20.2 Contact with and (suspected) exposure to infections with a predominantly sexual mode of transmission
CPT/HCPCS: 36415; 80053; 81003; 81515; 83735; 84702; 85025; 87491; 87591; 99283; 99284

== ENCOUNTER 2025-06-04 17:23 | Emergency (ER) | payer OTHER, SELFPAY ==
[2025-06-04 17:25] VITALS: BP 128/77; PULSE 108; RESP 18; TEMP 36.4; O2SAT 98; BMI 31.6
--- NOTE | 2025-06-04 17:35 | ED_ITS ---
HPI - General Adult General Chief complaint: General Medical Stated complaint: personal Time Seen by Provider: 06/04/25 17:58 Source: patient Mode of arrival: ambulatory Limitations: no limitations History of Present Illness HPI narrative: THIS IS A 30 YEARS OLD THE PATIENT PRESENTED TO THE EMERGENCY DEPARTMENT COMPLAINING OF VAGINAL DISCHARGE VAGINAL PAIN SINCE YESTERDAY SHE IS CONCERNED SHE MAY HAVE STD SHE HAS NO SYSTEMIC SYMPTOMS NO FEVER NO VOMITING Onset (ago): day(s) (1) Location: genitals Radiation: non-radiation Severity: mild Quality: burning Pain Consistency: constant Relieving factors: none Exacerbating factors: none Associated symptoms: denies other symptoms Related Data Previous Rx's ?Medication ?Instructions ?Recorded albuterol sulfate 90 mcg/actuation 1 inh inhalation QI D PRN shortness 03/03/25 aerosol inhaler (Ventolin HFA) of breath or wheezing # 6.7 grams inhalational spacing device #1 ea 03/03/25 ipratropium bromide 21 mcg (0.03 2 spray intranasal BI D #30 mL 03/03/25 %) nasal spray prednisone 20 mg tablet 40 mg (2 x 20 mg) PO DAILY # 10 tabs 03/03/25 metronidazole 500 mg tablet 500 mg PO BID 7 days #14 t abs 05/05/25 fluconazole 150 mg tablet 150 mg PO DAILY 1 dose #1 ta b 06/03/25 doxycycline monohydrate 100 mg 100 mg PO BID #14 tabs 06/04/25 tablet Allergies Allergy/AdvReac Type Severity Reaction Status Date / Time No Known Allergies Allergy Verified 06/04/25 17:27 Review of Systems Constitutional: Constitutional: Reports no additional constitutional complaints Cardiovascular: Cardiovascular: Reports no additional cardiovascular complaints Genitourinary: Genitourinary: Reports as per HPI [facility] Past Medical History [facility] Narrative: DENIES ANY MEDICAL PROBLEMS Medical History Syphilis Social History Social History Patient Tobacco Use Status: Never used Tobacco Substance Use Type: Marijuana Advance Directives: No Advance Directives Information Provided: Yes Physical Exam ED Exam Exam: NO ACUTE DISTRESS Vital Signs: Vital Signs - 24 hr 06/04/25 17:25 Temperature 97.5 F Pulse Rate 108 H Respiratory Rate 18 Blood Pressure 128/77 Pulse Oximetry 98 Oxygen Delivery Method Room Air BMI result Body Mass Index 31.6 Const General: cooperative HENMT Head: Yes normal to inspection Face and sinus: Yes normal facial exam Throat: Yes posterior oropharynx normal Neck Neck: Yes normal visual inspection Chest Chest palpation & inspection: normal inspection of the chest Cardio Jugular venous distension: no JVD Rate: regular rate Rhythm: regular rhythm Other: GENITALIA EXAMINATION SHOWS NO ULCERATION SHE HAS ON PELVIC EXAM WHITE DISCHARGE External Female Exam: normal external appearance and normal appearance of the urethra Speculum Exam - Vagina: normal appearance of the vagina and abnormal vaginal discharge Speculum Exam - Cervix: normal appearance of the cervix Course Course Course Narrative: RME: 30-year-old female presents to ED for STI evaluation. Patient admits to unprotected sex 2 days ago and now having vaginal discharge, vaginal lesions, and left inner oral inner mucosal lesions. On exam positive for ulcer like les ions on left inner buccal mucosa. Swabs UA ordered Reevaluation(s) Reevaluation #1: Remained stable unfortunately result of the STD still pending at this time I discussed with the patient either wait for the culture be treated empirically she would like to be treated empirically therefore she was given ceftriaxone 500 mg and prescription for doxycycline 100 mg b.i.d. 7 days Time: 23:55 Medications Administered Discontinued Medications Generic Name Dose Route Start Last Admin Trade Name Freq PRN Reason Stop Dose Admin Ceftriaxone Sodium 500 mg 06/04/25 23:47 06/05/25 00:21 Ceftriaxone Sodium 500 Mg Vial IM 06/04/25 23:48 500 mg ONCE ONE Administration Medical Decision Making Medical Decision Making [facility] Narrative: PATIENT IS HERE WITH VAGINAL DISCHARGE VAGINAL PAIN WE WILL SEND UA UCG STD CULTURE Differential Diagnosis Differential Diagnoses: The differential diagnosis associated with the presentation includes BACTERIAL VAGINOSIS/TRICHOMONAS/CHLAMYDIA/GC Admission/Observation Consideration of admission/observation: Escalation of care including admission/observation considered Lab Data [facility] Lab Attestation statement: I reviewed the patient's lab results. Labs: Lab Results 06/04/25 06/04/25 06/04/25 Range/Units 17:37 19:09 19:10 Urine Color Yellow Urine Appearance Clear Urine pH 6.0 (5.0-9.0) Ur Specific [place] >= 1.030 H (1.005-1.025) Urine Protein Trace (Neg-Trace) mg/dL Urine Glucose (UA) Negative (Negative) mg/dL Urine Ketones Negative (Negative) mg/dL Urine Blood Negative (Negative) Urine Nitrite Negative (Negative) Ur Leukocyte Esterase Moderate (2+) H (Negative) Urine RBC 0-2 (0-2) /HPF Urine WBC 0-5 (0-5) /HPF Ur Squamous Epith Cells 3-5 (0-2) /HPF Urine Bacteria 1+ (None Seen) Hyaline Casts 3-5 (0-2) /LPF Urine Test NEGATIVE (NEGATIVE) Ur N gonorrhoeae DNA (PCR) (Not Detect.) T.pallidum Ab (EIA) Nonreactive (Nonreactive) Chlam trachomat DNA PCR NOT DETECTED (Not Detect.) Ur Chlamydia DNA (PCR) (Not Detect.) N.gonorrhoeae DNA (PCR) NOT DETECTED (Not Detect.) T. vaginalis (PCR) NOT DETECTED (Not Detect) Bact vaginosis (PCR) NEGATIVE (Negative) C. krusei/glabrata (PCR) NOT DETECTED (Not Detect) Gabriella group (PCR) NOT DETECTED (Not Detect) 06/04/25 Range/Units 19:21 Urine Color Urine Appearance Urine pH (5.0-9.0) Ur Specific [place] (1.005-1.025) Urine Protein (Neg-Trace) mg/dL Urine Glucose (UA) (Negative) mg/dL Urine Ketones (Negative) mg/dL Urine Blood (Negative) Urine Nitrite (Negative) Ur Leukocyte Esterase (Negative) Urine RBC (0-2) /HPF Urine WBC (0-5) /HPF Ur Squamous Epith Cells (0-2) /HPF Urine Bacteria (None Seen) Hyaline Casts (0-2) /LPF Urine Test (NEGATIVE) Ur N gonorrhoeae DNA (PCR) NOT DETECTED (Not Detect.) T.pallidum Ab (EIA) (Nonreactive) Chlam trachomat DNA PCR (Not Detect.) Ur Chlamydia DNA (PCR) NOT DETECTED (Not Detect.) N.gonorrhoeae DNA (PCR) (Not Detect.) T. vaginalis (PCR) (Not Detect) Bact vaginosis (PCR) (Negative) C. krusei/glabrata (PCR) (Not Detect) Gabriella group (PCR) (Not Detect) Discharge Plan Discharge Clinical Impression: Vaginal discharge Patient Disposition: Home, Self-Care Instructions: Vaginal Discharge (ED) Additional Instructions: The result of the STD and Trichomonas still pending however we are going to treat him empirically we will give you a shut tonight and then we sent a prescription to the pharmacy for doxycycline 1 b.i.d. for 7 days Prescriptions: New doxycycline monohydrate 100 mg tablet 100 mg PO BID Qty: 14 0RF No Action fluconazole 150 mg tablet 150 mg PO DAILY Qty: 1 0RF Rx Instructions: administer on day 1 of therapy albuterol sulfate [Ventolin HFA] 90 mcg/actuation HFA aerosol inhaler 1 inh inhalation QID PRN (Reason: shortness of breath or wheezing) Qty: 6.7 1RF prednisone 20 mg tablet 40 mg PO DAILY Qty: 10 0RF ipratropium bromide 21 mcg (0.03 %) spray,non-aerosol 2 spray intranasal BID Qty: 30 0RF Rx Instructions: administer into each nostril (DME) inhalational spacing device Spacer See Rx Instructions .Route Qty: 1 0RF Rx Instructions: As directed metronidazole 500 mg tablet 500 mg PO BID 7 Days Qty: 14 0RF Referrals: Mauro Thompson MD [Primary Care Provider, Internal Medicine] - 06/07/25 Interventions: ED Discharge Assessment Last Done: 06/05/25 00:36 Discharge Date/Time: 06/05/25 00:45 Print Language: [place]
--- NOTE | 2025-06-04 18:49 | ED_ITS ---
HPI - General Adult General Chief complaint: General Medical Stated complaint: personal Time Seen by Provider: 06/04/25 17:58 Related Data Previous Rx's ?Medication ?Instructions ?Recorded albuterol sulfate 90 mcg/actuation 1 inh inhalation QI D PRN shortness 03/03/25 aerosol inhaler (Ventolin HFA) of breath or wheezing # 6.7 grams inhalational spacing device #1 ea 03/03/25 ipratropium bromide 21 mcg (0.03 2 spray intranasal BI D #30 mL 03/03/25 %) nasal spray prednisone 20 mg tablet 40 mg (2 x 20 mg) PO DAILY # 10 tabs 03/03/25 metronidazole 500 mg tablet 500 mg PO BID 7 days #14 t abs 05/05/25 fluconazole 150 mg tablet 150 mg PO DAILY 1 dose #1 ta b 06/03/25 doxycycline monohydrate 100 mg 100 mg PO BID #14 tabs 06/04/25 tablet Allergies Allergy/AdvReac Type Severity Reaction Status Date / Time No Known Allergies Allergy Verified 06/04/25 17:27 [facility] Past Medical History Medical History Syphilis Social History Social History Patient Tobacco Use Status: Never used Tobacco Substance Use Type: Marijuana Advance Directives: No Advance Directives Information Provided: Yes Physical Exam ED Vital Signs: Vital Signs - 24 hr 06/04/25 17:25 Temperature 97.5 F Pulse Rate 108 H Respiratory Rate 18 Blood Pressure 128/77 Pulse Oximetry 98 Oxygen Delivery Method Room Air BMI result Body Mass Index 31.6 Course Reevaluation(s) Reevaluation #1: 23:50 result of the chlamydia GC Trichomonas and Gabriella pending at this time we will discharge the patient home, discussed with the patient she would like to be treated empirically for possible STD therefore we gave her 500 mg of ceftriaxone and prescription for doxycycline Time: 23:51 Medical Decision Making Medical Decision Making MDM Narrative: Patient presented with a discharge concern for STD we will do a pelvic exam and obtain culture Lab Data Labs: Lab Results 06/04/25 Range/Units 19:10 Urine Color Yellow Urine Appearance Clear Urine pH 6.0 (5.0-9.0) Ur Specific [place] >= 1.030 H (1.005-1.025) Urine Protein Trace (Neg-Trace) mg/dL Urine Glucose (UA) Negative (Negative) mg/dL Urine Ketones Negative (Negative) mg/dL Urine Blood Negative (Negative) Urine Nitrite Negative (Negative) Ur Leukocyte Esterase Moderate (2+) H (Negative) Urine RBC 0-2 (0-2) /HPF Urine WBC 0-5 (0-5) /HPF Ur Squamous Epith Cells 3-5 (0-2) /HPF Urine Bacteria 1+ (None Seen) Hyaline Casts 3-5 (0-2) /LPF Urine Test NEGATIVE (NEGATIVE) Discharge Plan Discharge Clinical Impression: Vaginal discharge Patient Disposition: Home, Self-Care Instructions: Vaginal Discharge (ED) Additional Instructions: The result of the STD and Trichomonas still pending however we are going to treat him empirically we will give you a shut tonight and then we sent a prescription to the pharmacy for doxycycline 1 b.i.d. for 7 days Prescriptions: New doxycycline monohydrate 100 mg tablet 100 mg PO BID Qty: 14 0RF No Action fluconazole 150 mg tablet 150 mg PO DAILY Qty: 1 0RF Rx Instructions: administer on day 1 of therapy albuterol sulfate [Ventolin HFA] 90 mcg/actuation HFA aerosol inhaler 1 inh inhalation QID PRN (Reason: shortness of breath or wheezing) Qty: 6.7 1RF prednisone 20 mg tablet 40 mg PO DAILY Qty: 10 0RF ipratropium bromide 21 mcg (0.03 %) spray,non-aerosol 2 spray intranasal BID Qty: 30 0RF Rx Instructions: administer into each nostril (DME) inhalational spacing device Spacer See Rx Instructions .Route Qty: 1 0RF Rx Instructions: As directed metronidazole 500 mg tablet 500 mg PO BID 7 Days Qty: 14 0RF Referrals: Mauro Thompson MD [Primary Care Provider, Internal Medicine] - 06/07/25 Print Language: Citizen Of [place]
[2025-06-04 19:30] LABS: Appearance Urine Clear; Glucose Urine UA Negative (Negative); PH 6.0 (5.0-9.0); Specific Gravity - Urine >= 1.030 (1.005-1.025); UMIC TRIGGER UACC YES
[2025-06-04 19:31] LABS: UPreg QC Valid YES
[2025-06-04 19:44] LABS: UACC Culture Trigger YES
--- NOTE | 2025-06-04 20:23 | PC.NURSE ---
assumed care of pt, pt resting in stretcher with lights dimmed. Awaiting test results, respirations even and unlabored.
[2025-06-04 23:55] VITALS: BP 100/74; PULSE 87; RESP 18; TEMP 36.2; O2SAT 98
[2025-06-05 00:36] VITALS: BP 100/74; PULSE 87; RESP 18; TEMP 36.2; O2SAT 98
[2025-06-05 09:16] LABS: Syphilis Screen Nonreactive (Nonreactive)
[2025-06-05 12:02] LABS: Bacterial Vaginosis PCR NEGATIVE (Negative); Candida Group PCR NOT DETECTED (Not Detect); Candida glab krusei PCR NOT DETECTED (Not Detect); Trichomonas vaginalis PCR NOT DETECTED (Not Detect)
[2025-06-05 12:34] LABS: CT PCR NOT DETECTED (Not Detect.); NG PCR NOT DETECTED (Not Detect.)
[2025-06-05 12:35] LABS: CT PCR Urine NOT DETECTED (Not Detect.); NG PCR Urine NOT DETECTED (Not Detect.)
== END 2025-06-05 00:45 | disposition home or self-care (01) ==
PROVIDERS: Physician Assistant; Emergency Provider Emergency Medicine; PCP Internal Medicine
DX: N89.8 Other specified noninflammatory disorders of vagina (principal); R10.20 Pelvic and perineal pain unspecified side; K13.79 Other lesions of oral mucosa; Z20.2 Contact with and (suspected) exposure to infections with a predominantly sexual mode of transmission; Z79.899 Other long term (current) drug therapy
CPT/HCPCS: 36415; 81001; 81025; 81515; 86780; 87086; 87147; 87255; 87491; 87591; 96372; 99284; J0696

== ENCOUNTER 2025-08-13 13:35 | Outpatient (REF) | payer OTHER, SELFPAY ==
[2025-08-14 09:44] LABS: Bacterial Vaginosis PCR POSITIVE (Negative); Candida Group PCR NOT DETECTED (Not Detect); Candida glab krusei PCR NOT DETECTED (Not Detect); Trichomonas vaginalis PCR NOT DETECTED (Not Detect)
[2025-08-14 10:12] LABS: CT PCR DETECTED (Not Detect.); NG PCR NOT DETECTED (Not Detect.)
== END 2025-08-13 13:36 | disposition home or self-care (01) ==
LOC: HO.LNP 13:35
PROVIDERS: PCP Internal Medicine; Visit Provider Advanced Practice Midwife
DX: N89.8 Other specified noninflammatory disorders of vagina (principal); N92.6 Irregular menstruation, unspecified; Z20.2 Contact with and (suspected) exposure to infections with a predominantly sexual mode of transmission; Z30.09 Encounter for other general counseling and advice on contraception; Z32.02 Encounter for pregnancy test, result negative; Z71.3 Dietary counseling and surveillance; Z68.31 Body mass index [BMI] 31.0-31.9, adult; Z87.42 Personal history of other diseases of the female genital tract
CPT/HCPCS: 81515; 87491; 87591

== ENCOUNTER 2025-08-13 13:35 | Outpatient (AMB) | payer OTHER, SELFPAY ==
--- OUTSIDE RECORDS SUMMARY | 2025-08-13 13:37 | XMS_ITS | Clinical Summary ---
Author Organization [facility] ity Address [address] [place] [address] Care Team Providers Care Documentation Nurse Name Role Phone Unavailable Primary Care Provider [...] on file Sexual Orientation Not on file Plan of Treatment Health Maintenance Due Date Last Done Comments DTaP,Tdap,and Td Vaccines (1 - Tdap) 2013 Hepatitis B Vaccines (1 of 3 - 19+ 3-dose series) 2013 Cervical Cancer Screening: P ap Smear 2015 HPV Vaccines (1 - 3-dose SCD M series) 2021 Depression Screening 08/19/2024 COVID-19 Vaccine (1 - 2024-2 6 season) 2025 Influenza Vaccine (#1) 2025 RSV Immunization Adult Patie nts (1 - 1-dose 75+ series) 2069 HIB Vaccines Aged Out No longer eligi [...]
--- NOTE | 2025-08-13 13:38 | MHC.OFFVIS ---
Vital Signs 08/13/25 13:40 Height 5 ft 2 in Weight 170 lb BMI 31.1 BP 102/66 Blood Pressure Location Rt brachial Position Sitting Intake Visit Reasons: Possible BV Symptoms Intake Note: Here c/o vaginal odor with tannish vaginal discharge for 3 days Lead Database Administrator: Lead Database Administrator Present (Dede Elias LPN) Accompanied by: Self / Same As Patient Allergies No Known Allergies Allergy (Verified 08/13/25 13:42) Medication List - Last Reconciled 08/13/25 by Rebecca Whitaker CNM albuterol sulfate 90 mcg/actuation (Ventolin HFA) 1 inh inhalation QID PRN inhalational spacing device As directed ipratropium bromide 2 sprays intranasal BID Is last menstrual period known: Yes Last menstrual period: 07/12/25 Do you need a note to return to daycare/school/sports/work: No HPI Comments Details: Pt presents today with vaginal concerns: Symptoms include: vaginal odor and discharge Started : x 3 days Recent antibiotics: none New detergents/soaps : none Last intercourse: partner of 7 months, reports condom use Relief measures : an otc boric acid suppository with some relief Contraception: condoms and 3 days late for menses, She is also interested control, states not able to remember daily pill and interested in a LARC. Has a 5 yo daughter with autism requires a lot of her time [facility] Medical History Syphilis Social History (Updated 08/13/25 @ 13:45 by Dede Elias LPN) Household Members: Family Housing: House Patient Tobacco Use Status: Current everyday Tobacco user Substance Use Type: Marijuana Female Reproductive History Menstrual Age of Menarche: 10 Date of last menstrual period: 07/12/25 control method: condoms Total pregnancies: 2 Number of Living Children: 1 Ab induced: 1 Date of last pap smear: 07/01/24 History of abnormal pap smear: No Review of Systems Const Reports no additional complaints Eyes Reports no additional complaints ENT Reports no additional complaints Card Reports no additional complaints Resp Reports no additional complaints GI Reports no additional complaints Reports as per HPI Skin/Breast Reports system reviewed and no additional complaints, except as documented Physical Exam Vital Signs: Last Vital Signs BP 102/66 08/13/25 13:40 BMI result Body Mass Index 31.1 Const General: cooperative and healthy appearing Orientation/consciousness: patient oriented x3 HEENT Head: Yes normocephalic External Female Exam: normal external appearance and normal appearance of the urethra Speculum Exam - Vagina: normal appearance of the vagina and normal vaginal discharge (very scant) Speculum Exam - Cervix: normal appearance of the cervix (neg CMT) and normal palpation Bimanual exam- vagina & uterus: normal palpation Skin General skin exam: no rashes or lesions noted Neuro General: patient oriented x3 Psych Affect: normal affect Results AMB Test Urine AMB Test Urine Negative Last Edit by Dede Elias LPN on 08/13/25 13:56 Assessment & Plan Assessment & Plan (1) Late menses: Code(s): N92.6 - Irregular menstruation, unspecified Category: Medical Plan: UHCG is negative (2) History of PID: Code(s): Z87.42 - Personal history of other diseases of the female genital tract Category: Medical (3) Encounter for screening examination for sexually transmitted disease: Code(s): Z11.3 - Encounter for screening for infections with a predominantly sexual mode of transmission Category: Medical Plan: GC/CT screening per pt request (4) control counseling: Code(s): Z30.09 - Encounter for other general counseling and advice on contraception Category: Medical Plan: Nexplanon counseling with patient. She is informed that it does not protect against HIV infection and other STDs. She is instructed and encouraged on the use of condoms always. Patient is informed that the device will be effective for a period of up to 4 years. The most common side effects include changes in bleeding pattern ranging from amenorrhea to spotting and/or irregular or prolonged bleeding. She is informed that only in rare circumstances will the device be removed prior to 6 months, while allowing the body to adjust to hormonal changes. Implant site conditions experienced including: swelling, redness, hematoma, and pain. Implant site complications were at 1%. Removal complications were also low and included implant not palpable, broken or damaged implant, difficulty localizing the implant, slight migration and formation of fibrosis. Patient is counseled that the use of hormonal contraceptions is associated with increased risks of several serious adverse effects including thromboembolic diseases. Cigarette smoking increases the risk of serious CV effects; women who use hormonal contraceptives are strongly advised not to smoke. she is provided with written literature/Nexplanon pamphlet Specialty pharmacy request placed and pt will be notified once available, within the next month for insertion (5) Vaginal odor: Code(s): N89.8 - Other specified noninflammatory disorders of vagina Plan Labs today GC/CT/bd affirm Safe sex counseling Enc use of probiotics to promote vaginal health Avoid perfumed soaps an area Discussed vaginal hygiene, loose cotton undergarments, avoidance of deodorants and sprays colored or scented harsh soaps. Pending results will treat or adjust treatment if indicated Prefers oral tx for vag infection Orders: Orders AMB HCG Urine Test Today Z32.02 - Encounter for test, result negative Patient Instructions: Vaginal hygiene, loose cotton undergarments, avoidance of deodorants and sprays colored or scented harsh soaps. Healthy diet/nutrition: limit refined sugar, such as white sugars, breads/pasta/rice and Would encourage to try whole grains, increase water intake and limited sweetened drinks. Patient can also start an [id number] probiotic which can help replenish her lactobacillus. Examples include AZOs, Acidophilous, Yogurt with active lactobacilli, RepHesh, Replens and ReBalanced by Litzy to promote vaginal health Coding Level of Care Code Tele Est Pt Level 3 (64582) Diagnoses Late menses N92.6 History of PID Z87.42 Encounter for screening examination for sexually transmitted disease Z11.3 control counseling Z30.09 Vaginal odor N89.8
[2025-08-13 13:40] VITALS: BP 102/66; BMI 31.1
== END 2025-08-13 14:18 | disposition home or self-care (01) ==
LOC: HO.HWS 13:35
PROVIDERS: PCP Internal Medicine; Visit Provider Advanced Practice Midwife
DX: N92.6 Irregular menstruation, unspecified (principal); Z87.42 Personal history of other diseases of the female genital tract; Z11.3 Encounter for screening for infections with a predominantly sexual mode of transmission; Z30.09 Encounter for other general counseling and advice on contraception; N89.8 Other specified noninflammatory disorders of vagina; Z32.02 Encounter for pregnancy test, result negative
CPT/HCPCS: 99213